=== PATIENT | male | born 1995 | race Caucasian/White ===

== ENCOUNTER 2020-05-11 15:23 | Emergency (ER) | payer SELFPAY ==
[2020-05-11 15:36] VITALS: BP 188/102; PULSE 83; RESP 16; TEMP 36.6; O2SAT 98
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
[2020-05-11] MEDS: Lidocaine/Epinephri/Tetracaine Topical Gel 3 ML (15:52)
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
--- NOTE | 2020-05-11 17:43 | NUR.NOTE ---
Nursing Note: Referral given to Care Management to establish care/PCP within 2-3 weeks. Jacinda Platt
== END 2020-05-11 18:00 | disposition home or self-care (01) ==
PROVIDERS: Emergency Provider Student in an Organized Health Care Education/Training Program
DX: S62.663A Nondisplaced fracture of distal phalanx of left middle finger, initial encounter for closed fracture (principal); S61.313A Laceration without foreign body of left middle finger with damage to nail, initial encounter; V48.5XXA Car driver injured in noncollision transport accident in traffic accident, initial encounter
CPT/HCPCS: 12001; 99281; 73130; 73140

== ENCOUNTER 2021-01-24 05:37 | Emergency (ER) | payer MEDICAID, SELFPAY ==
[2021-01-24] VITALS (11 sets, daily range): BP systolic 141–172; BP diastolic 67–88; PULSE 60–95; RESP 16–18; TEMP 36.3–36.8; O2SAT 97–99
--- NOTE | 2021-01-24 05:45 | DI.CT_ITS ---
Exam(s) CT BRAIN CTA EXAM: CT BRAIN CTA CLINICAL HISTORY: confusion, altered. TECHNIQUE: Imaging Protocol: Both noninfused and contrast infused CT scans of the brain were perform ed. IV Contrast Dose =75 cc Axial computed tomography images with coronal and sagittal reformatted images were created and review ed COMPARISON: No exams were available for comparison FINDINGS: There are no skull fractures nor fluid in the visualized paranasal sinuses. There is no evidence of intracranial hemorrhage, intra or extra-axial.Enlarged retro cerebellar poste rior fossa CSF space is noted which show some is either prominent cisterna magna or retro cerebellar arachnoid cyst. No other focal findings. No shift. There are no ring enhancing lesions in the brain and there is no abnormal meningeal enhancement, foca l or diffuse. CTA: ANTERIOR CIRCULATION: Both internal carotid arteries are patent in the skull base-carotid canals as w ell as within the cavernous sinuses. The supraclinoid aspects of the internal carotid arteries are p atent. Both A1 segments are patent as are the anterior cerebral arteries. There is no evidence of a neurysm at the level of the anterior communicating artery. Middle cerebral arteries are patent. POSTERIOR CIRCULATION: Basilar artery is formed by both vertebral arteries at the skull base and asce nds in the midline. Distally basilar artery gives off superior cerebellar arteries and above this le angelica terminates as patent bilateral posterior cerebral arteries. There is no evidence of aneurysm of the tip of the basilar artery nor elsewhere in the [id number]. IMPRESSION: No acute intracranial findings. No vascular occlusion. No aneurysms. No significant enhancing intracranial findings. Large retro cerebellar CSF space, probably prominent retro cerebellar arachnoid cyst. Study 1st read by [facility] RADIATION DOSE DELIVERED: 2,234.9mGy.cm Total DLP DATA REPOSITORY: All CT scans at this facility are submitted to the National Radiology Data Registry (NRDR) Dose Index Registry (DIR) with the [employer] (A[employer]). RADIATION OPTIMIZATION: All CT scans at this facility use at least one of these dose optimization te chniques: automated exposure control; mA and/or kV adjustment per patient size (includes targeted exa ms where dose is matched to clinical indication); or iterative reconstruction.
--- NOTE | 2021-01-24 05:58 | W.ED.GENAD ---
Discharge Plan Disposition Patient Disposition: HOME Condition: Improving Discharge Details Clinical Impression: Confusion state Primary Care Provider: None,None ED Provider: Mandi Bermudez Home Meds and New Rx's Prescriptions: No Action No Known Home Meds RF: 0 Discharge Instructions Instructions: Altered Mental Status (ED) Additional Instructions: Your imaging today is reassuring and does not note evidence of an acute brain abnormality at this time. Drink plenty of fluids and get plenty of rest. Follow-up with your scheduled appointment with neurologist Dr. Tyler in the office tomorrow at 1:45 PM for further evaluation. You will receive a call from care management regarding a follow-up appointment with the primary care doctor to establish care and for recheck of your carbon dioxide level in your blood and for referral for outpatient sleep study to rule out obstructive sleep apnea. Return immediately to the emergency department if you develop any worsening or new concerning symptoms. Stand Alone Forms: Work Release Referrals: Lisa Tyler MD [ [facility] STAFF PHYSICIAN] - Discharge Data Discharge Date/Time-TO BE ENTERED AT DEPARTURE: 01/24/21 13:09 Discharge Physician: Mandi Bermudez Medical Decision Making <Rogers Mallory DO - Last Filed: 01/25/21 00:10> This is a 25-year-old male with no significant past medical history who presents today for difficulty thinking and alteration of his baseline mental processing. Patient states that yesterday he had difficulty remembering if things were a dream or real life. He states he was treated late went and did test that he had already completed not recalling that he had done them in her life. He felt like his brain was in a fog. He denies any headache, trauma, new medications, IV or illicit drugs, or other symptoms. 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 He denies any natural gas use. She does admit that his sibling has been at home and she has felt nauseous today. Patient [place] This was [place]. One family member had diarrhea, but was negative on Covid testing. No other symptoms at that time. Patient denies any history or family history of MS, brain tumors, or bleeds. Patient denies any visual changes, neck pain or neck stiffness, chest pain, shortness of breath. He does admit to occasional intermittent cough. He denies any tobacco use. He works at [employer], but denies any significant chemical contact. He denies any dizziness or imbalance. No other complaints at this time. No other modifying factors. Also the patient does note that it is very very distant past he had an enlarged thyroid, but had no further work-up for this. Physical exam is relatively unremarkable, no focal neurologic deficits are present. Fine motor skills are notably intact. No meningeal signs. Patient does not appear in acute distress at this time. No headache. Symptoms appear inconsistent with meningitis. Differential is broad but does include carbon monoxide poisoning, acute or subacute intracranial etiology, including potential brain tumor, or some other metabolic cause of his very mild subjective encephalopathy. We will evaluate for life-threatening etiologies, monitor closely and reassess. 7:16 AM Laboratory work-up demonstrates an unremarkable white count, electrolytes are all stable and normal. Ammonia level, thyroid function are all normal. Unexpectedly the patient's PCO2 level is elevated at 65, however this is in the setting of a low/low normal pH. Uncertain as to what the etiology of this is. I did discuss this with the patient, although he does not have the body habitus of sleep apnea, he does state that he occasionally snores but otherwise has not had significant difficulty. We will get a repeat ABG. CT/CTA per virtual radiology is not yet complete however radiology did call and noted that there is nodular/heterogenous component to his cerebral vasculature potentially secondary to a nonspecific vasculitis, and there is also a proximal left sylvian fissure branch which demonstrates an abrupt occlusion in the anterior sylvian fissure. Patient does not show any focal neurologic deficits at this time, and certainly does not show any significant peripheral deficits suggestive of a large stroke at all clinically. The patient stroke scale is negative, NIH stroke score is 0. No indication for TPA. Patient does need further evaluation. We will order MRI, patient will be signed out to my colleague Dr. Mandi Bermudez for further assessment and follow-up on imaging. Patient will likely need further neurology consultation pending inpatient or outpatient basis. <Mandi Bermudez DO - Last Filed: 01/25/21 08:27> 0800 -- please see Dr. Mallory's note for initial presentation, exam and plan. Case endorsed to follow-up on MRI/MRA brain and neck. Patient assessed by me at bedside --he denies any acute complaints. He states majority of the symptoms were yesterday in which he was confused with tasks and whether he had completed them or not and a feeling of d?j? vu. He states the symptoms were lessened today but still present. He has no focal deficits on exam. No meningeal signs. Appears comfortable and nontoxic. 1045 -- MRA Brain and neck negative for acute findings. MRI Brain w/o contrast notes: IMPRESSION: 1. On the FLAIR sequence 1 image reveals very subtle increased signal in a left frontal lobe gyrus, possibly significant. There is no evidence of hemorrhage at this level. There is also no restricted diffusion on DWI. Recommend follow-up contrast infused MRI 2. Retro cerebellar CSF intensity extra-axial space. 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 It measures 10 cm wide by averaged 1.[address] Padron is recommending MRI brain with contrast for further differentiation of noncontrast MRI brain findings. 1230 --no acute findings noted on MRI brain with contrast. Case discussed with Dr. Tyler - the MRI brain without contrast findings can sometimes be seen postictal. She is recommending follow-up with her this week for reevaluation and for consideration for EEG and repeat MRI brain without contrast. No recommendation for seizure medication at this time. Pt was given his radiology discs and reports and all findings discussed including arachnoid cyst which per discussion with Dr. Tyler is likely incidental. Just prior to discharge, Dr. Tyler's office called to state they have scheduled him for a follow-up appointment tomorrow at 1:45 PM. Patient also placed on care management list to help arrange for follow-up appointment with the primary care doctor to establish care, for reevaluation and for recheck of his CO2 level and for consideration for outpatient sleep study. Pt felt comfortable with plan and appeared comfortable and in no acute distress. Usual and customary return precautions given prior to discharge. Medical Records Medical records reviewed: Yes I reviewed the patient's medical records. Imaging Data Radiologic Study: Radiologist's impression: MRA BRAIN WO CLINICAL HISTORY: confusion, vascular abnormalities on ct TECHNIQUE: Performed with [id number] sequence. COMPARISON: MR MR ANGIO BRAIN WO from 01/24/2021 FINDINGS: ANTERIOR CIRCULATION: Both internal carotid arteries are demonstrated to be patent in the skull base carotid canals and cavernous sinuses. The supraclinoid aspects of the internal carotid arteries are patent. Both a 1 segments are patent as are the anterior cerebral arteries and there is no evidence of aneurysm at the level of the anterior communicating artery. Middle cerebral arteries appear patent out to the sylvian fissure branches POSTERIOR CIRCULATION: Basilar artery is formed at the skull base by both vertebral arteries and the basilar artery ascends in the midline with normal luminal diameter. Distally gives off superior cerebellar arteries and above this level terminates as patent bilateral posterior cerebral arteries. There is no evidence of aneurysm tip of the basilar artery. IMPRESSION: No evidence of significant arterial stenosis nor vascular occlusion in the intracranial compartment. MRI BRAIN WO CLINICAL HISTORY: confusion, vascular abnormalities on ct TECHNIQUE: Multiplanar multisequence MRI of the brain was performed. Both noninfused and contrast infused sequences were performed. IV Contrast injected was cc Dotarem. COMPARISON: MR MR BRAIN WO from 01/24/2021 MR MR BRAIN WO from 01/24/2021 FINDINGS: CEREBRAL PARENCHYMA: No evidence of intracranial hemorrhage, mass effect nor shift of midline structure. No extraaxial fluid collections. Ventricles are not enlarged nor shifted. There is no significant focal signal abnormality in the cerebellar hemispheres nor within the maricel, midbrain, and thalami. There is no abnormal signal abnormality in the periventricular white matter. On the FLAIR sequence there is subtle increased gyral signal in the left frontal lobe. This is subtle. No evidence of hemorrhage at this level. Also no abnormal signal on diffusion imaging to suggest restricted diffusion at this level. There enlarged csf space in the posterior fossa which extends behind both cerebellar hemispheres and is most probably either widen cisterna magna or retro cerebellar arachnoid cyst. This measures approximately 10 cm wide by 2 cm AP. PITUITARY GLAND: No mass nor parasellar abnormality. No obvious abnormality in the cavernous sinuses. FLOW VOIDS: The expected flow void are noted. No evidence of obvious aneurysm nor obvious vascular malformation. PARANASAL SINUSES: There post inflammatory retention cysts in both maxillary sinuses. No fluid levels. Also mucosal thickening noted in the left maxillary sinus and right frontal sinus. No associated fluid level. Sphenoid sinuses are clear. ORBITS: No obvious abnormal findings. IMPRESSION: 1. On the FLAIR sequence 1 image reveals very subtle increased signal in a left frontal lobe gyrus, possibly significant. There is no evidence of hemorrhage at this level. There is also no restricted diffusion on DWI. Recommend follow-up contrast infused MRI 2. Retro cerebellar CSF intensity extra-axial space. 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 It measures 10 cm wide by averaged 1.8 cm AP. MRA NECK WITHOUT IV CONTRAST CLINICAL HISTORY: confusion, vascular abnormalities on ct. TECHNIQUE: Multiplanar multisequence MRA of the brain was performed. COMPARISON: None. FINDINGS: Anterior circulation: Both common carotid arteries ascend with normal luminal diameters. There is no significant stenosis at the carotid bifurcations and proximal internal carotid arteries and both internal carotid arteries are patent in the neck and skull base. POSTERIOR CIRCULATION: both vertebral arteries originated conventional fashion off of the subclavian arteries. left vertebral artery is dominant. both vertebral arteries are patent in the foramen transversarium and both vertebral arteries contribute to the formation of of the basilar artery at the skull base. IMPRESSION: PATENT CAROTID ARTERIES IN THE NECK. NO SIGNIFICANT STENOSIS. PATENT VERTEBRAL ARTERIES IN THE NECK. NO STENOSIS NOR DISSECTION. Lab Data Lab results reviewed: Yes I reviewed the patient's lab results. HPI <Rogers Mlalory, - Last Filed: 01/25/21 00:10> General Date/Time Provider Initiated Documentation: 01/24/21 05:38. HPI Narrative: This is a 25-year-old male with no significant past medical history who presents today for difficulty thinking and alteration of his baseline mental processing. Patient states that yesterday he had difficulty remembering if things were a dream or real life. He states he was treated late went and did test that he had already completed not recalling that he had done them in her life. He felt like his brain was in a fog. He denies any headache, trauma, new medications, IV or illicit drugs, or other symptoms. 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 He denies any natural gas use. She does admit that his sibling has been at home and she has felt nauseous today. Patient did [place]. This was [place]. One family member had diarrhea, but was negative on Covid testing. No other symptoms at that time. Patient denies any history or family history of MS, brain tumors, or bleeds. Patient denies any visual changes, neck pain or neck stiffness, chest pain, shortness of breath. He does admit to occasional intermittent cough. He denies any tobacco use. He works at [employer], but denies any significant chemical contact. He denies any dizziness or imbalance. No other complaints at this time. No other modifying factors. Also the patient does note that it is very very distant past he had an enlarged thyroid, but had no further work-up for this. Related Data Home Medications Medication Instructions Recorded Confirmed Unknown [No Known Home Meds] 05/17/20 01/24/21 Allergies Allergy/AdvReac Type Severity Reaction Status Date / Time banana Allergy throat Unverified 01/24/21 05:55 swelling honey Allergy Anaphylaxis Unverified 01/24/21 05:55 kiwi Allergy throat Unverified 01/24/21 05:55 swelling melon Allergy throat Unverified 01/24/21 05:55 swelling pineapple Allergy throat Unverified 01/24/21 05:55 swelling strawberry Allergy throat Unverified 01/24/21 05:55 swelling General Stated Complaint: GenMedical WALT: 2 Review of Systems <Rogers Mallory DO - Last Filed: 01/25/21 00:10> All systems reviewed & are unremarkable except as noted in HPI and below PFSH <Rogers Mallory DO - Last Filed: 01/25/21 00:10> Active Problem List (Updated 01/24/21 @ 12:46 by Mandi Bermudez DO) Confusion state (Acute) Fracture of phalanx of left middle finger (Acute) Injury of nail bed of finger (Acute) Abrasion (Acute) Medical History (Updated 01/24/21 @ 12:46 by Mandi Bermudez DO) No significant past medical history Surgical History (Updated 01/24/21 @ 12:46 by Mandi Bermudez DO) History of hernia repair S/P skin cancer resection foot Social History Smoking/Tobacco Use Status: Never Smoking risk assessment performed?: Yes Alcohol Intake: never Drug use: Never Substance use type: does not use Do you feel safe at home: Yes Do you feel safe in your relationship?: Yes Exam <Rogers Mallory DO - Last Filed: 01/25/21 00:10> Narrative Exam Narrative: 1.Const: Well-nourished, Well-developed, appearing stated age 2.Eyes: PERRL, no conjunctival injection, and symmetrical lids. 3.ENT: Atraumatic external nose and ears. Moist MM. Neck: Symmetric, trachea midline, No thyromegaly. Patient demonstrates good movement of cervical neck. There is no nuchal rigidity, no nuchal tenderness. Patient is able to flex the neck without any difficulty or significant pain. Negative Kernig's and Brudzinski sign. 4.CVS: +S1/S2, No murmurs or gallops. Peripheral pulses 2+ and equal in all extremities. Brisk capillary refill in all extremities. 5.RESP: Unlabored respiratory effort. Clear to auscultation bilaterally. No wheezes rales or rhonchi 6.GI: Soft, Nontender/Nondistended, No hepatosplenomegaly. No guarding or rebound. 7.MSK: Normocephalic/Atraumatic, Extremities w/o deformity or ttp No cyanosis or clubbing, Normal movement of all extremities 8.Skin: Warm, Dry. No rashes or lesions. 9.Neuro: rim roller setter II-XII grossly intact. Sensation grossly intact, no focal neurologic deficits. All 6 cardinal planes of vision are fully intact. No evidence of rotatory or vertical nystagmus. The patient demonstrated a normal [id number], good dexterity. There was no evidence of dysdiadochokinesia. Patient was able to ambulate without difficulty. There was no wide-based gait. Romberg testing was normal. Zslx-oy-coug testing was normal. Sensation was intact bilaterally as well as muscle strength bilaterally for all extremities. Patient was able to verbalize butter cup with no slurring, or miss pronunciation. 10.Psych: (AAO) x3. Appropriate mood and affect Course <Rogers Mallory DO - Last Filed: 01/25/21 00:10> Vital Signs Vital signs: Vital Signs Temperature 36.5 C 01/24/21 05:43 Pulse 95 H 01/24/21 05:43 Respiratory Rate 18 01/24/21 05:43 Blood Pressure 172/84 H 01/24/21 05:43 Pulse Oximetry 97 01/24/21 05:43 Temperature 36.5 C 01/24/21 05:43 Temperature Source Skin 01/24/21 05:43 Pulse 95 H 01/24/21 05:43 Respiratory Rate 18 01/24/21 05:43 Respiratory Effort Non-Labored 01/24/21 05:56 Blood Pressure 172/84 H 01/24/21 05:43 Blood Pressure Position Sitting 01/24/21 05:43 Pulse Oximetry 97 01/24/21 05:43 Oxygen Delivery Method Room Air 01/24/21 05:43 Oxygen Flow Rate 0 01/24/21 05:43 Pain Level 1 01/24/21 05:43 Sign Out <Rogers Mallory DO - Last Filed: 01/25/21 00:10> Sign Out Data: Sign Out Comment: Confusion, pending MRI results and follow-up reassessment. Last updated by Rogers Mallory DO at 01/24/21 07:33
[2021-01-24] MEDS: Omnipaque 350 MG/ML 100 ML BTL IJ (06:15)
[2021-01-24] MEDS: Normal Saline 500 ML IV (06:15)
[2021-01-24] MEDS: Normal Saline Flush 10 ML SYR IVP (06:15)
[2021-01-24 06:18] LABS: BE (Venous) 6 mmol/L (-2-3); HCO3 (Venous) 33 mmol/L (23-28); O2 Sat (Venous) 46 %; TCO2 (Venous) 29 mmol/L (24-29); pH (Venous) 7.31 (7.31-7.41); pO2 (Venous) 27 mmHg
[2021-01-24 06:19] LABS: Abs Immature Grans 0.02 10^3/uL (0.0-0.06); Absolute Basophil Count 0.07 10^3/uL (0.0-0.2); Absolute Eosinophil Count 0.42 10^3/uL (0.0-0.7); Absolute Lymphocyte Count 2.32 10^3/uL (1.2-3.4); Absolute Monocyte Count 0.58 10^3/uL (0.1-0.8); Eosinophils % 6.2; HCT 49.1 % (40.0-50.0); HGB 16.2 g/dL (13.5-17.5); Immature Grans % 0.3; Lymphocytes % 34.1; MCH 28.5 pg (27.0-33.0); MCV 86.4 fL (80-95); MPV 9.7 fL (8.0-11.0); Monocytes % 8.5; Neutrophils % 49.9; Nucleated RBC 0 %; Platelet Count 293 10^3/uL (130-400); RBC 5.68 10^6/uL (4.36-5.78); RDW 12.2 % (11.8-14.1); RDW-SD 38.5 fL; WBC 6.81 10^3/uL (4.4-10.8)
[2021-01-24 06:22] LABS: Carboxyhemoglobin 1.7 %
[2021-01-24 06:24] LABS: pCO2 (Venous) 65 mmHg (41-51)
--- NOTE | 2021-01-24 06:27 | NUR.NOTE ---
Nursing Note: care management is to set him up with pcp and the referral is in the care management mailbox
[2021-01-24 06:28] LABS: Ammonia 19 umol/L (11-32)
[2021-01-24 06:48] LABS: ALT 23 U/L (16-63); AST 17 U/L (15-37); Albumin 4.3 g/dL (3.4-5.0); Alkaline Phosphatase 53 U/L (46-116); Anion Gap 5.7 mmol/L (3-11); BUN 13 mg/dL (7-18); Bilirubin, Total 0.5 mg/dL (0.2-1.0); CO2 33.3 mmol/L (21.0-32.0); CREATININE 0.9 mg/dL (0.70-1.30); Calcium 8.8 mg/dL (8.5-10.1); Chloride 104 mmol/L (98-107); Glucose 81 mg/dL (74-106); Potassium 3.7 mmol/L (3.5-5.1); Sodium 143 mmol/L (136-145); TSH (W/Ref FT4) 3.46 uIU/mL (0.36-3.74); Total Protein 8.1 g/dL (6.4-8.2)
[2021-01-24 06:49] LABS: ETHANOL BLOOD < 3.0 mg/dL (<10)
--- NOTE | 2021-01-24 07:09 | DI.VRAD_ITS ---
Addendum created by Ger Caruso MD on 01/24/2021 7:50:13 AM EST: Subsequently reformatted MIP images are requested and reviewed. Although minimal irregularity in the contour of the enhanced lumen is noted common a definite diagnosis of FMD the cannot be made Addendum created by Ger Caruso MD on 01/24/2021 7:21:54 AM EST: THIS REPORT CONTAINS FINDINGS THAT MAY BE CRITICAL TO PATIENT CARE. The findings were verbally communicated via telephone conference with YONG MERA at 7:21 AM EST on 01/24/2021. The findings were acknowledged and understood. Initial report created on 01/24/2021 7:09:28 AM EST: PROCEDURE INFORMATION: Exam: CT Angiography Head With Contrast, Arteriography Exam date and time: 01/24/2021 5:58 AM Age: 25 years old Clinical indication: Memory loss; Type not specified; Patient HX: Confusion, altered, difficulty finding words, patient states time feels like going fast and memory deficits, doesn't feel right TECHNIQUE: Imaging protocol: Computed tomography angiography of the head with contrast. Exam focused on the arteries. 3D rendering (Not supervised by radiologist): MIP and/or 3D reconstructed images were created by the technologist. Contrast material: [id number]; Contrast volume: 100 ml; Contrast route: INTRAVENOUS (IV); COMPARISON: No relevant prior studies available. FINDINGS: Slightly heterogeneous appearance of the cerebral vasculature which demonstrates a slightly nodular appearance. In a patient of this age this would be unlikely to reflect atherosclerosis and may reflect a nonspecific vasculitis such as FMD. Proximal left sylvian fissure branch demonstrates what appears to be abrupt occlusion in the anterior sylvian fissure. Cerebral ventricles: No ventriculomegaly. Bones/joints: Unremarkable. No acute fracture. Soft tissues: Unremarkable. IMPRESSION: 1. Slightly heterogeneous appearance of the cerebral vasculature which demonstrates a slightly nodular appearance. In a patient of this age this would be unlikely to reflect atherosclerosis and may reflect a nonspecific vasculitis such as FMD. 2. Proximal left sylvian fissure branch demonstrates what appears to be abrupt occlusion in the anterior sylvian fissure. Dictated and Authenticated by: Ger Caruso MD. Ordering:KAMLESH Mccloud MD
[2021-01-24 07:21] LABS: BE (Venous) 4 mmol/L (-2-3); HCO3 (Venous) 30 mmol/L (23-28); O2 Sat (Venous) 60 %; TCO2 (Venous) 27 mmol/L (24-29); pCO2 (Venous) 57 mmHg (41-51); pH (Venous) 7.33 (7.31-7.41); pO2 (Venous) 33 mmHg
[2021-01-24 07:30] LABS: *AMPHETAMINES SCREEN URINE Negative (Negative); *BARBITURATES SCREEN URINE Negative (Negative); *BENZODIAZEPINES SCREEN URINE Negative (Negative); Cannabinoids THC Negative (Negative); Cocaine Screen,Urine Negative (Negative); METHADONE URINE SCREEN Negative (Negative); OPIATES URINE SCREEN Negative (Negative)
[2021-01-24 07:40] LABS: Tricyclic Antidepressants Negative (Negative)
--- NOTE | 2021-01-24 07:45 | DI.MRI_ITS ---
Exam(s) MR BRAIN WO EXAM: MRA BRAIN WO CLINICAL HISTORY: confusion, vascular abnormalities on ct TECHNIQUE: Performed with [id number] sequence. COMPARISON: MR MR ANGIO BRAIN WO from 01/24/2021 FINDINGS: ANTERIOR CIRCULATION: Both internal carotid arteries are demonstrated to be patent in the skull base carotid canals and cav ernous sinuses. The supraclinoid aspects of the internal carotid arteries are patent. Both a 1 segm ents are patent as are the anterior cerebral arteries and there is no evidence of aneurysm at the lev el of the anterior communicating artery. Middle cerebral arteries appear patent out to the sylvian fissure branches POSTERIOR CIRCULATION: Basilar artery is formed at the skull base by both vertebral arteries and the basilar artery ascends in the midline with normal luminal diameter. Distally gives off superior cerebellar arteries and abo ve this level terminates as patent bilateral posterior cerebral arteries. There is no evidence of an eurysm tip of the basilar artery. IMPRESSION: No evidence of significant arterial stenosis nor vascular occlusion in the intracranial compartment. . DATA REPOSITORY:
--- NOTE | 2021-01-24 07:45 | DI.MRI_ITS ---
Exam(s) MR ANGIO BRAIN WO EXAM: MRI BRAIN WO CLINICAL HISTORY: confusion, vascular abnormalities on ct TECHNIQUE: Multiplanar multisequence MRI of the brain was performed. Both noninfused and contrast i nfused sequences were performed. IV Contrast injected was cc Dotarem. COMPARISON: MR MR BRAIN WO from 01/24/2021 MR MR BRAIN WO from 01/24/2021 FINDINGS: CEREBRAL PARENCHYMA: No evidence of intracranial hemorrhage, mass effect nor shift of midline structu re. No extraaxial fluid collections. Ventricles are not enlarged nor shifted. There is no significant focal signal abnormality in the cerebellar hemispheres nor within the maricel, m idbrain, and thalami. There is no abnormal signal abnormality in the periventricular white matter. On the FLAIR sequence there is subtle increased gyral signal in the left frontal lobe. This is subtl e. No evidence of hemorrhage at this level. Also no abnormal signal on diffusion imaging to suggest restricted diffusion at this level. There enlarged csf space in the posterior fossa which extends behind both cerebellar hemispheres and is most probably either widen cisterna magna or retro cerebellar arachnoid cyst. This measures appro ximately 10 cm wide by 2 cm AP. PITUITARY GLAND: No mass nor parasellar abnormality. No obvious abnormality in the cavernous sinuses. FLOW VOIDS: The expected flow void are noted. No evidence of obvious aneurysm nor obvious vascular ma lformation. PARANASAL SINUSES: There post inflammatory retention cysts in both maxillary sinuses. No fluid level s. Also mucosal thickening noted in the left maxillary sinus and right frontal sinus. No associated fluid level. Sphenoid sinuses are clear. ORBITS: No obvious abnormal findings. IMPRESSION: 1. On the FLAIR sequence 1 image reveals very subtle increased signal in a left frontal lobe gyrus, p ossibly significant. There is no evidence of hemorrhage at this level. There is also no restricted diffusion on DWI. Recommend follow-up contrast infused MRI 2. Retro cerebellar CSF intensity extra-axial space. 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 It measures 10 cm wide by averaged 1.8 cm AP. DATA REPOSITORY:
--- NOTE | 2021-01-24 07:45 | DI.MRI_ITS ---
Exam(s) MR ANGIO NECK WO EXAM: MRA NECK WITHOUT IV CONTRAST CLINICAL HISTORY: confusion, vascular abnormalities on ct. TECHNIQUE: Multiplanar multisequence MRA of the brain was performed. COMPARISON: None. FINDINGS: Anterior circulation: Both common carotid arteries ascend with normal luminal diameters. There is no significant stenosis at the carotid bifurcations and proximal internal carotid arteries and both internal carotid arteries are patent in the neck and skull base. POSTERIOR CIRCULATION: both vertebral arteries originated conventional fashion off of the subclavian arteries. left vertebral artery is dominant. both vertebral arteries are patent in the foramen foreman sversarium and both vertebral arteries contribute to the formation of of the basilar artery at the sk ul base. IMPRESSION: PATENT CAROTID ARTERIES IN THE NECK. NO SIGNIFICANT STENOSIS. PATENT VERTEBRAL ARTERIES IN THE NECK. NO STENOSIS NOR DISSECTION. DATA REPOSITORY:
--- NOTE | 2021-01-24 11:00 | DI.MRI_ITS ---
Exam(s) MR BRAIN W EXAM: MR BRAIN W CLINICAL HISTORY: increased signal L frontal gyrus, r/o cva/mass TECHNIQUE: Multiplanar multisequence MRI of the brain was performed. Both noninfused and contrast i nfused sequences were performed. IV Contrast injected was 18 cc Dotarem. COMPARISON: MR MR BRAIN WO from 01/24/2021 MR MR ANGIO BRAIN WO from 01/24/2021 MR MR ANGIO BRAIN WO from 01/24/2021 MR MR BRAIN WO from 01/24/2021 FINDINGS: CEREBRAL PARENCHYMA: No evidence of intracranial hemorrhage, mass effect nor shift of midline structu re. No extraaxial fluid collections. Ventricles are not enlarged nor shifted. There is no significant focal signal abnormality in the cerebellar hemispheres nor within the maricel, m idbrain, and thalami. There is no abnormal signal abnormality in the periventricular white matter. There are no ring enhancing lesions in the brain and there is no abnormal meningeal enhancement. There is no enhancement in the gyrus described left frontal lobe on the recent noninfused study FLAIR sequence. Previously described enlarged CSF space in the posterior fossa retro cerebellar region is again noted , nonenhancing. 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 PITUITARY GLAND: No mass nor parasellar abnormality. No obvious abnormality in the cavernous sinuses. FLOW VOIDS: The expected flow void are noted. No evidence of obvious aneurysm nor obvious vascular ma lformation. No evidence of venous sinus thrombosis. None PARANASAL SINUSES: Mucosal thickening and post inflammatory retention cysts noted in the right maxill kyler sinus, this cyst measuring 1.9 x 1.5 cm. Smaller amount of mucosal thickening seen in left maxil naren sinus. Some mucosal enhancement is noted in the right frontal sinus but without fluid level the rein. ORBITS: No obvious abnormal findings. IMPRESSION: 1. No significant enhance intracranial findings on this MRI study. No ring enhancing lesions nor abn ormal meningeal enhancement. Also no abnormal enhancement at the level of the left frontal lobe gyru s described on the FLAIR sequence of the conventional MRI performed earlier today.. 2. No evidence of venous sinus thrombosis. 3,. Enlarged retro cerebellar CSF space again noted, 10 cm wide by 1.5 cm AP. 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 DATA REPOSITORY:
--- NOTE | 2021-01-25 10:50 | NUR.NOTE ---
referral sent to cm to get a pcp to establish care, recheck bmp and schedcule a outpatient sleep study
[2021-01-25 16:33] LABS: COVID-19 RT-PCR UVMMC Result Negative (Negative)
== END 2021-01-24 13:09 | disposition home or self-care (01) ==
PROVIDERS: Student in an Organized Health Care Education/Training Program; Emergency Provider Physician Assistant
DX: R41.0 Disorientation, unspecified (principal); R90.89 Other abnormal findings on diagnostic imaging of central nervous system; R06.89 Other abnormalities of breathing; Z20.822 Contact with and (suspected) exposure to COVID-19; Z03.818 Encounter for observation for suspected exposure to other biological agents ruled out
CPT/HCPCS: 36415; 70496; 70544; 70547; 70552; 80053; 80307; 82375; 82805; 96360; 96361; 99285; U0003; 70551; 80320; 82140; 84443; 85025; J3490

== ENCOUNTER 2021-02-04 00:49 | Outpatient (CLI) | payer MEDICAID, SELFPAY ==
--- NOTE | 2021-02-10 10:26 | PDOC.EEG ---
Neurology EEG EEG: [facility] Department of Neurology LONG-TERM AMBULATORY EEG REPORT Date of Recordin02/04/21 at 15:37:45 to 02/05/21 at 16:19:08 Interpreting Physician: Dr. Lisa Tyler PCP/Referring Provider: Dr. Pollo Villalobos Reason for study: Mr. Alex is a 25 year-old with recent spells of amnesia, concerning for seizure. Current Medications: Home Medications Medication Instructions Recorded Confirmed Type Unknown [No Known Home Meds] 05/17/20 02/04/21 History METHODS: An 18-channel digitized electroencephalogram was recorded in the ambulatory setting with video. The 10/20 international system of electrode placement was used and bipolar and referential electrode montages were recorded. In addition to EEG the patient was monitored for EKG and by video. Activation procedures of photic stimulation and hyperventilation were performed if applicable. The duration of the recording was ~25 hours. DESCRIPTION OF EEG: Waking background activity: During maximal wakefulness an 11-Hz posterior background rhythm was present which was well-modulated, symmetrical, reactive to eye opening, and of moderate voltage. Faster frequencies were present in the bilateral anterior head regions. There was a normal anterior-posterior voltage gradient. Drowsy and sleeping background activity: During drowsiness, there was attenuation of the posterior dominant background rhythm and vertex waves. Normal stage II and III sleep was present with symmetrical sleep spindles, K-complexes, and vertex waves with slowing of the background rhythm to delta/theta frequencies. REM sleep manifested by rapid lateral eye movements and faster background rhythms was recorded. Arousal was unremarkable, though he was noted to have very frequent arousals in sleep. Interictal abnormalities: none. Ictal findings: No events recorded. Activating Procedures: Photic stimulation was performed which produced a symmetrical posterior driving response at various flash frequencies. Hyperventilation was performed with moderate effort and produced no physiological slowing of the background. EKG: EKG revealed normal sinus rhythm. INTERPRETATION: This long-term EEG is normal during the awake and sleep states as well as during the activation procedures. Frequent nocturnal arousals out of sleep noted. PRIOR EEG: none CLINICAL CORRELATION: No focal regions of cerebral dysfunction or epileptiform activity was present. Frequent nocturnal arousals concerning for an underlying sleep disorder. Epilepsy remains a clinical diagnosis and a normal EEG does not rule out epilepsy. Clinical correlation is advised. Lisa Tyler MD
== END 2021-02-04 00:50 | disposition home or self-care (01) ==
LOC: RT 00:49
PROVIDERS: PCP Family Medicine; Visit Provider Psychiatry & Neurology Neurology
DX: G45.4 Transient global amnesia (principal)
CPT/HCPCS: 95714

== ENCOUNTER 2021-02-04 16:33 | Emergency (ER) | payer MEDICAID, SELFPAY ==
[2021-02-04 16:48] VITALS: BP 145/75; PULSE 67; TEMP 36.7; O2SAT 96
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
[2021-02-04 17:37] VITALS: BP 130/50; PULSE 65; RESP 22; TEMP 37.1; O2SAT 91
[2021-02-04] MEDS: Bacitracin 1 PACKET TP (17:37)
== END 2021-02-04 17:18 | disposition home or self-care (01) ==
PROVIDERS: Emergency Provider Registered Nurse Emergency; PCP Family Medicine
DX: T23.272A Burn of second degree of left wrist, initial encounter (principal); X15.0XXA Contact with hot stove (kitchen), initial encounter
CPT/HCPCS: 99282

== ENCOUNTER 2021-03-31 01:42 | Outpatient (CLI) | payer MEDICAID, SELFPAY ==
--- NOTE | 2021-03-31 06:30 | DI.MRI_ITS ---
Exam(s) MR BRAIN WO EXAM: MR BRAIN WO CLINICAL HISTORY: f/u abnormal left frontal lesion,r90.89 TECHNIQUE: Multiplanar multisequence MRI of the brain was performed. COMPARISON: MR MR BRAIN W from 01/24/2021 MR MR BRAIN WO from 01/24/2021 FINDINGS: The ventricular system is normal in appearance. Note is again made of prominent fluid space, retro c erebellar, large cisterna magna versus arachnoid cyst. No change from prior study of December 2020. Incidental note is made of apparent right maxillary retention cyst. In comparison with the examination of January 24, a questionable area of increased signal was note d in a left frontal gyrus, this is unchanged or less prominent on the current examination, the DIR sp osmar images show no abnormality at this site.. The orbital and temporal bone structures appear intact as does the pituitary. Diffusion weighted imaging shows no evidence of infarction. Susceptibility weighted imaging shows no evidence of intracranial hemorrhage. There is normal flow void in the [place] vasculature. IMPRESSION: No evidence of acute intracranial process. DATA REPOSITORY:
== END 2021-03-31 02:02 ==
PROVIDERS: PCP Family Medicine; Visit Provider Psychiatry & Neurology Neurology
DX: R90.89 Other abnormal findings on diagnostic imaging of central nervous system (principal); G93.89 Other specified disorders of brain
CPT/HCPCS: 70551

== ENCOUNTER 2021-05-09 17:23 | Outpatient (REF) | payer MEDICAID, SELFPAY | END 2021-05-09 17:24 | disposition home or self-care (01) | LOC: LBN 17:23 | PROVIDERS: PCP Family Medicine; Visit Provider Family Medicine | DX: R21 Rash and other nonspecific skin eruption (principal) | CPT/HCPCS: 87077; 87070; 87186; 87205 ==

== ENCOUNTER 2022-08-11 10:46 | Outpatient (CLI) | payer MEDICAID, SELFPAY ==
--- NOTE | 2022-08-11 10:45 | RT.EKG_ITS ---
APPROVED REPORT Exam: Resting ECG Reason for Exam: Sore throat Patient Location: O HR:68 bpm ECG Measurements Heart Rate 68 AXIS MA 171 P 47 QRSd 103 QRS 22 QT 391 T 39 QTc 416 Conclusion Sinus rhythm...normal P axis, V-rate 50- 99 ST elev, probable normal early repol pattern...ST elevation, age<55 Normal Electrocardiogram
== END 2022-08-11 10:47 | disposition home or self-care (01) ==
PROVIDERS: PCP Nurse Practitioner Family; Visit Provider Physician Assistant
DX: J02.9 Acute pharyngitis, unspecified (principal); R42 Dizziness and giddiness
CPT/HCPCS: 93010

== ENCOUNTER 2022-08-11 13:34 | Outpatient (REF) | payer MEDICAID, SELFPAY | END 2022-08-11 13:35 | disposition home or self-care (01) | LOC: LBN 13:34 | PROVIDERS: PCP Nurse Practitioner Family; Visit Provider Physician Assistant | DX: J02.9 Acute pharyngitis, unspecified (principal) | CPT/HCPCS: 87070 ==

== ENCOUNTER 2022-08-11 13:48 | Outpatient (CLI) | payer MEDICAID, SELFPAY ==
--- NOTE | 2022-08-11 11:00 | DI.US_ITS ---
Exam(s) US ABDOMEN EXAM: US ABDOMEN CLINICAL HISTORY: abdominal pain, epigastric, RUQ,? splenomegaly, fatigue,r10.9 TECHNIQUE: Ultrasound of complete upper abdomen performed using standard protocol. COMPARISON: No exams were available for comparison FINDINGS: There is no ascites evident. LIVER: There are no hepatic lesions evident nor obvious dilatation of intrahepatic ducts. GALLBLADDER/BILIARY: There are no gallstones. No gallbladder wall edema nor pericholecystic fluid. The common hepatic duct isnot dilated, measuring 2mm at the level of marissa hepatis. PANCREAS: There is no evidence of pancreatic mass nor dilatation of the pancreatic duct. SPLEEN: Spleen is enlarged, measuring 16 cm length. No significant intrasplenic lesions. No perispl enic fluid. KIDNEYS:Kidneys exhibit normal size with no evidence of solid mass, calculus, nor hydronephrosis. No cortical cysts evident. ABDOMINAL AORTA: There is no evidence of abdominal aortic aneurysm. IVC: Normal diameter where visualized. IMPRESSION: 1. Splenomegaly noted. No intrasplenic lesions. No perisplenic fluid 2. No other significant ultrasound findings in the upper abdomen. 3. There is no ascites. DATA REPOSITORY:
--- NOTE | 2022-08-11 13:30 | DI.CT_ITS ---
Exam(s) CT CHEST PE CTA EXAM: CT CHEST PE CTA CLINICAL HISTORY: chest pain, SOB elevated d Dimer,R07.9. TECHNIQUE: Imaging Protocol: CT angiography of the chest was performed using pulmonary embolus helen col. Multi planar reconstructions were performed. CONTRAST MATERIAL: Intravenous: Omnipaque 350 Contrast volume: 100 cc COMPARISON: CT CT BRAIN CTA from 01/24/2021 FINDINGS: CHEST: PULMONARY ARTERIES: There are no obvious intraluminal filling defects to suggest acute pulmonary embo li. LUNGS: No significant focal findings in the left lung.. No pleural effusion. In the opposite-right lung there is a pleural based density in the posterior basal segment right lowe r lobe which measures approximately 1.6 by 0.8 cm. Not associated with overlying rib destruction nor pleural effusion. Requires follow-up. There are no other focal right lung findings. No findings i n trachea and mainstem bronchi. MEDIASTINUM: There are calcified prominent subcarinal lymph nodes. Also small calcified lymph nodes in the right hilum.. No adenopathy in the anterior mediastinal fat. Visualized thyroid unremarkable . CARDIAC: Heart size is upper normal. There is no pericardial effusion.Caliber of the thoracic aorta is within normal limits. No dissection. There is no significant shift of the interventricular septum . PARTIALLY VISUALIZED UPPERMOST ABDOMEN: No adrenal masses. Splenomegaly noted. OSSEOUS: No significant osseous lesions.. IMPRESSION: 1. No evidence of acute pulmonary emboli. 2. Partially calcified pleural based density in the posterior basal segment right lower lobe as descr ibed above. No other focal lung findings but there does appear to be subcarinal adenopathy, partiall y calcified. Also few slightly prominent calcified right hilar lymph nodes. 3. Splenomegaly noted. Close follow-up recommended. Cannot exclude lymphoma. RADIATION DOSE DELIVERED: 537.5mGy.cm Total DLP DATA REPOSITORY: All CT scans at this facility are submitted to the National Radiology Data Registry (NRDR) Dose Index Registry (DIR) with the [employer] (ACR). RADIATION OPTIMIZATION: All CT scans at this facility use at least one of these dose optimization te chniques: automated exposure control; mA and/or kV adjustment per patient size (includes targeted exa ms where dose is matched to clinical indication); or iterative reconstruction.
[2022-08-11] MEDS: Omnipaque 350 MG/ML 100 ML BTL IJ (16:36)
[2022-08-11] MEDS: Normal Saline - Diluent 50 ML VIAL IJ (16:38)
[2022-08-11] MEDS: Normal Saline Flush 10 ML SYR IVP (16:39)
== END 2022-08-11 14:08 ==
PROVIDERS: PCP Nurse Practitioner Family; Visit Provider Physician Assistant
DX: R53.83 Other fatigue; R16.1 Splenomegaly, not elsewhere classified; R06.02 Shortness of breath
CPT/HCPCS: 71275; 76700; J3490

== ENCOUNTER 2022-08-11 14:18 | Outpatient (CLI) | payer MEDICAID, SELFPAY ==
[2022-08-11 11:58] LABS: Abs Immature Grans 0.02 10^3/uL (0.0-0.06); HCT 45.6 % (40.0-50.0); HGB 14.9 g/dL (13.5-17.5); MCH 28.2 pg (27.0-33.0); MCHC 32.7 % (32.0-36.0); MCV 86 fL (80-95); MPV 9.7 fL (8.0-11.0); Platelet Count 221 10^3/uL (130-400); RBC 5.29 10^6/uL (4.36-5.78); RDW 12.9 % (11.8-14.1); RDW-SD 40.3 fL; WBC 9.55 10^3/uL (4.4-10.8)
[2022-08-11 12:18] LABS: ALT 589 U/L (16-63); AST 244 U/L (15-37); Alkaline Phosphatase 76 U/L (46-116); Anion Gap 5.7 mmol/L (3-11); BUN 13 mg/dL (7-18); Bilirubin, Total 0.6 mg/dL (0.2-1.0); CO2 30.3 mmol/L (21.0-32.0); CREATININE 0.9 mg/dL (0.70-1.30); Chloride 103 mmol/L (98-107); Estimated GFR 119.31 (mL/min/1.73m2); Glucose 94 mg/dL (74-106); Lipase 23 U/L (16-77); Mono Screening POSITIVE (Negative); Potassium 4.3 mmol/L (3.5-5.1); Sodium 139 mmol/L (136-145); Total Protein 8.3 g/dL (6.4-8.2); Troponin I < 50 ng/L (<or=60)
[2022-08-11 12:22] LABS: Absolute Eosinophil Count 0.29 10^3/uL (0.0-0.7); Absolute Lymphocyte Count 5.73 10^3/uL (1.2-3.4); Absolute Monocyte Count 0.48 10^3/uL (0.1-0.8); Absolute Neutrophil Count 3.06 10^3/uL (1.2-6.7); Atypical Lymphocytes % 42; Diff Comment Manual Differential; RBC Morphology Normal
[2022-08-11 12:34] LABS: D-Dimer 632 ng/mlFEU (<500)
[2022-08-14 10:09] LABS: Lyme Ab w Rflx to Lyme Confirm Negative (Negative)
[2022-08-14 15:04] LABS: EBV DNA Detect/Quant, P 134 IU/mL (Undetected)
[2022-08-15 16:41] LABS: Anaplasma phagocytophilum Negative (Negative); B. miyamotoi PCR Negative (Negative); Babesia divergens/MO-1 Negative (Negative); Babesia duncani Negative (Negative); Babesia microti Negative (Negative); Ehrlichia chaffeensis Negative (Negative); Ehrlichia ewingii/canis Negative (Negative); Ehrlichia muris eauclairensis Negative (Negative)
== END 2022-08-11 14:19 | disposition home or self-care (01) ==
LOC: LBO 14:18
PROVIDERS: PCP Nurse Practitioner Family; Visit Provider Physician Assistant
DX: R53.83 Other fatigue; J02.9 Acute pharyngitis, unspecified; R07.89 Other chest pain; R91.8 Other nonspecific abnormal finding of lung field; R10.9 Unspecified abdominal pain; R16.1 Splenomegaly, not elsewhere classified
CPT/HCPCS: 36415; 80053; 83690; 87798; 87799; 84484; 85025; 85379; 86308; 86618

== ENCOUNTER 2023-03-27 10:50 | Outpatient (CLI) | payer MEDICAID, SELFPAY ==
[2023-03-27 16:49] LABS: Abs Immature Grans 0.05 10^3/uL (0.0-0.06); Absolute Basophil Count 0.07 10^3/uL (0.0-0.2); Absolute Eosinophil Count 0.57 10^3/uL (0.0-0.7); Absolute Lymphocyte Count 3.16 10^3/uL (1.2-3.4); Absolute Monocyte Count 0.67 10^3/uL (0.1-0.8); Absolute Neutrophil Count 4.61 10^3/uL (1.2-6.7); Basophils % 0.8; Eosinophils % 6.2; HCT 47.8 % (40.0-50.0); HGB 16.4 g/dL (13.5-17.5); Immature Grans % 0.5; Lymphocytes % 34.6; MCH 28.9 pg (27.0-33.0); MCHC 34.3 % (32.0-36.0); MCV 84 fL (80-95); MPV 9.5 fL (8.0-11.0); Monocytes % 7.3; Neutrophils % 50.6; Platelet Count 329 10^3/uL (130-400); RBC 5.67 10^6/uL (4.36-5.78); RDW 11.9 % (11.8-14.1); RDW-SD 36.1 fL; WBC 9.13 10^3/uL (4.4-10.8)
[2023-03-27 16:51] LABS: ESR 2 mm/hr (0-15)
[2023-03-27 17:00] LABS: LDH 220 U/L (85-227)
[2023-03-27 17:03] LABS: ALT 41 U/L (16-63); Albumin 4.2 g/dL (3.4-5.0); Alkaline Phosphatase 42 U/L (46-116); Anion Gap 10.7 mmol/L (3-11); BUN 14 mg/dL (7-18); Bilirubin, Total 0.3 mg/dL (0.2-1.0); CO2 29.3 mmol/L (21.0-32.0); CREATININE 0.9 mg/dL (0.70-1.30); Calcium 9.3 mg/dL (8.5-10.1); Chloride 104 mmol/L (98-107); Estimated GFR 118.57 (mL/min/1.73m2); Glucose 116 mg/dL (74-106); Potassium 3.8 mmol/L (3.5-5.1); Sodium 144 mmol/L (136-145)
[2023-03-27 17:17] LABS: Calculated LDL 87 mg/dL (<100); Cholesterol 206 mg/dL (<200); HDL Cholesterol 41 mg/dL (40-60); Triglyceride 394 mg/dL (<150)
[2023-03-27 17:42] LABS: AST 22 U/L (15-37)
[2023-03-29 10:05] LABS: IgA 186 mg/dL (85-499); IgG 1328 mg/dL (610-1616); IgM 90 mg/dL (35-242)
== END 2023-03-27 10:51 | disposition home or self-care (01) ==
LOC: LBO 03-28 10:51
PROVIDERS: PCP Nurse Practitioner Family; Visit Provider Internal Medicine Hematology & Oncology
DX: R59.0 Localized enlarged lymph nodes (principal); R79.89 Other specified abnormal findings of blood chemistry; Z13.220 Encounter for screening for lipoid disorders; Z00.00 Encounter for general adult medical examination without abnormal findings
CPT/HCPCS: 36415; 80053; 80061; 82784; 85027; 85652; 83615; 85025

== ENCOUNTER 2023-07-18 08:34 | Outpatient (CLI) | payer MEDICAID, SELFPAY ==
[2023-07-18 07:58] LABS: Abs Immature Grans 0.02 10^3/uL (0.0-0.06); Absolute Basophil Count 0.05 10^3/uL (0.0-0.2); Absolute Eosinophil Count 0.54 10^3/uL (0.0-0.7); Absolute Lymphocyte Count 2.37 10^3/uL (1.2-3.4); Absolute Monocyte Count 0.47 10^3/uL (0.1-0.8); Absolute Neutrophil Count 2.57 10^3/uL (1.2-6.7); Basophils % 0.8 %; HCT 46.8 % (40.0-50.0); HGB 15.6 g/dL (13.5-17.5); Immature Grans % 0.3 %; Lymphocytes % 39.4 %; MCH 28.4 pg (27.0-33.0); MCHC 33.3 % (32.0-36.0); MCV 85 fL (80-95); MPV 9.3 fL (8.0-11.0); Monocytes % 7.8 %; Neutrophils % 42.7 %; Platelet Count 257 10^3/uL (130-400); RBC 5.49 10^6/uL (4.36-5.78); RDW 11.9 % (11.8-14.1); RDW-SD 37.1 fL; WBC 6.02 10^3/uL (4.4-10.8)
[2023-07-18 08:03] LABS: ESR < 1 mm/hr (0-15)
[2023-07-18 08:32] LABS: ALT 34 U/L (16-63); AST 26 U/L (15-37); Alkaline Phosphatase 40 U/L (46-116); Anion Gap 2.6 mmol/L (3-11); BUN 14 mg/dL (7-18); Bilirubin, Total 0.6 mg/dL (0.2-1.0); CO2 30.4 mmol/L (21.0-32.0); Calcium 8.8 mg/dL (8.5-10.1); Chloride 105 mmol/L (98-107); Estimated GFR 104.48 (mL/min/1.73m2); Glucose 127 mg/dL (74-106); Potassium 4.2 mmol/L (3.5-5.1); Sodium 138 mmol/L (136-145); Total Protein 7.6 g/dL (6.4-8.2)
[2023-07-18 08:44] LABS: LDH 211 U/L (85-227)
== END 2023-07-18 08:35 | disposition home or self-care (01) ==
LOC: LBO 08:35
PROVIDERS: PCP Nurse Practitioner Family; Visit Provider Internal Medicine Hematology & Oncology
DX: Z00.00 Encounter for general adult medical examination without abnormal findings (principal); R59.0 Localized enlarged lymph nodes
CPT/HCPCS: 36415; 80053; 85027; 85652; 83615; 85025

== ENCOUNTER 2023-09-26 10:35 | Outpatient (REF) | payer MEDICAID, SELFPAY | END 2023-09-26 10:36 | disposition home or self-care (01) | LOC: LBN 10:35 | PROVIDERS: PCP Nurse Practitioner Family; Visit Provider Physician Assistant | DX: J02.9 Acute pharyngitis, unspecified (principal) | CPT/HCPCS: 87070 ==

== ENCOUNTER 2023-10-01 00:23 | Emergency (ER) | payer MEDICAID, SELFPAY ==
[2023-10-01] VITALS (19 sets, daily range): BP systolic 141–154; BP diastolic 71–99; PULSE 88–108; RESP 11–23; TEMP 37.1; O2SAT 92–97
--- NOTE | 2023-10-01 00:30 | RT.EKG_ITS ---
APPROVED REPORT Exam: Resting ECG Reason for Exam: upper body pain Patient Location: E HR:97 bpm ECG Measurements Heart Rate 97 AXIS AK 180 P 51 QRSd 93 QRS 16 QT 327 T 40 QTc 415 Conclusion Sinus rhythm...normal P axis, V-rate 60- 99 Probable left atrial enlargement...P >50mS, <-0.10mV V1 ST elev, probable normal early repol pattern...ST elevation, age<55 There are no significant changes compared to prior EKG performed on 08/11/2022 at 10:39.
--- NOTE | 2023-10-01 00:33 | ED.GENADUL_ITS ---
Discharge Plan Disposition Patient Disposition: Home Condition: Stable Discharge Details Clinical Impression: Nausea, vomiting and diarrhea, Chest pain Primary Care Provider: Evie Finch ED Provider: Cecilio Pleitez Meds and New Rx's Prescriptions: New Ondansetron Odt, 3 Tabs/Btl [Zofran Odt, 3 Tabs/Btl] 4 mg PO Q8H PRN (Reason: Nausea And Vomiting) Qty: 3 0RF Continued magnesium oxide 400 mg (241.3 mg magnesium) tablet 400 mg PO DAILY Discharge Instructions Instructions: Chest Pain, Adult ED, Nausea and Vomiting, Adult ED Additional Instructions: You were seen for chest pain that occurred in association with vomiting and is likely musculoskeletal in nature. Your exam, EKG, laboratory studies, CT scan are all reassuring. Rest and take it easy over the next day or 2. [place] diet is recommended. Ondansetron provided for recurrent nausea vomiting. May use acetaminophen or ibuprofen for your pain. Follow-up with primary care in the next few days if you are not improving. Return to ED for any fever, worsening chest pain, abdominal pain, shortness of breath, persistent vomiting, bloody diarrhea, other concerns. HPI General Mode of arrival: ambulatory . Date/Time Provider Initiated Documentation: 10/01/23 00:32 . Limitations to Documentation: no limitations . Information obtained by: patient . HPI Narrative: Patient presents to ED complaint of chest pain that occurred after he began vomiting this evening. Patient reports being fine during the day. Late this afternoon started to feel unwell, nausea, headache. This evening around 9 PM had his first episode of vomiting. Has had diarrhea. Has had a little bit of abdominal pain. Developed substernal chest pain after vomiting the first time. Vomited a second time and pain significantly worse. Thought the vomit a second time looked a little reddish-brown in nature but not grossly bloody. Chest pain worse with breathing or movement. Denies any back pain. Denies any shortness of breath. Reports feeling like something popped inside his chest while vomiting. Related Data Home Medications ?Medication ?Instructions ?Recorded ?Confirmed magnesium oxide 400 mg (241.3 mg 400 mg PO DAILY 03/29/21 10/01/23 magnesium) tablet Ondansetron ODT, 3 tabs/btl 4 mg PO Q8H PRN Nausea And 10/01/23 [Zofran ODT, 3 tabs/btl] Vomiting #3 ea Previous Rx's ?Medication ?Instructions ?Recorded Ondansetron ODT, 3 tabs/btl 4 mg PO Q8H PRN Nausea And 10/01/23 [Zofran ODT, 3 tabs/btl] Vomiting #3 ea Allergies Allergy/AdvReac Type Severity Reaction Status Date / Time banana Allergy throat Verified 10/01/23 00:32 swelling honey Allergy Anaphylaxis Verified 10/01/23 00:32 kiwi Allergy throat Verified 10/01/23 00:32 swelling melon Allergy throat Verified 10/01/23 00:32 swelling pineapple Allergy throat Verified 10/01/23 00:32 swelling strawberry Allergy throat Verified 10/01/23 00:32 swelling General Stated Complaint: Chest Pain WALT: 3 Review of Systems Narrative: Per HPI Exam Narrative Exam Narrative: Const: WDWN male in NAD. VS per triage. HEENT: NC/AT. Normal facial exam. Neck: Supple. Trachea midline. Lungs: Normal respiratory effort. Lungs are clear. Chest wall tenderness along the lower sternum. Cor: RRR without murmur. Good radial pulses. GI: Soft/ND/NT. Neuro: A+O x 3. Normal speech, mentation, gait. Cranial nerves II - XII grossly intact. No gross motor or sensory deficit. Ext: No C/C/E. Course Vital Signs Vital signs: Vital Signs Temperature 98.8 F 10/01/23 00:28 Pulse 108 H 10/01/23 00:28 Respiratory Rate 18 10/01/23 00:28 Blood Pressure 141/88 H 10/01/23 00:28 Pulse Oximetry 95 10/01/23 00:28 Temperature 98.8 F 10/01/23 00:28 Temperature Source Skin 10/01/23 00:28 Pulse 108 H 10/01/23 00:28 Respiratory Rate 18 10/01/23 00:28 Respiratory Effort Normal 10/01/23 00:31 Blood Pressure 141/88 H 10/01/23 00:28 Blood Pressure Position Sitting 10/01/23 00:28 Pulse Oximetry 95 10/01/23 00:28 Oxygen Delivery Method Room Air 10/01/23 00:28 Oxygen Flow Rate 0 10/01/23 00:28 Medical Decision Making Patient presenting to ED with chest pain that began after vomiting. Did have initially after first episode of vomiting but much worse after second episode. Hurts to take a deep breath but does not feel short of breath. Denies any neck or back pain. Complains of some upper abdominal pain but has a benign abdomen. Thinks second episode of vomiting was a little reddish-brown in nature. No gross blood. No blood in his diarrhea. Likely musculoskeletal chest wall pain. Symptoms not really consistent with ACS, PE, dissection. Should consider possible Mara-Roach tear or esophageal perforation. IV established and laboratory studies obtained. Fluids and medications ordered. CT scan of the chest abdomen pelvis ordered. 02:45 - Patient is doing better after fluids, IV acetaminophen and ondansetron. Laboratory studies are unremarkable. No worrisome abnormalities. CT scan preliminary read per radiology with no pneumomediastinum, evidence of some esophageal inflammation distally, liquid stool throughout the colon consistent with diarrheal illness. Has some trace left pleural effusion and mild splenomegaly. Will plan discharge home with ondansetron provided to use as needed. Rest, bland diet, acetaminophen or ibuprofen for his chest pain which is likely musculoskeletal in nature. Follow-up with primary care in the next few days if not improving. Return precautions provided. Medical Records Medical records reviewed: Yes I reviewed the patient's medical records. Medical records narrative: Neuro and Oncology notes Lab Data Lab results reviewed: Yes I reviewed the patient's lab results. Lab results narrative: see [facility] ECG Data Attestation: I personally reviewed and interpreted this ECG (s) as follows: Prior ECG tracings: available for review Interpretation: see EKG/[facility] All Active Problems (Updated 10/01/23 @ 02:48 by Cecilio Pleitez MD) Chest pain (Acute) Nausea, vomiting and diarrhea (Acute) Concussion (Acute) Chronic nasal congestion (Acute) Deviated nasal septum (Acute) Hypercapnia (Acute) Abnormal brain MRI (Acute) Non-restorative sleep (Acute) Amnesia (Acute) Medical History Migraine headache with aura Surgical History S/P skin cancer resection foot History of hernia repair Family History Mother No problems noted. Father No problems noted. Sister No problems noted. Sister No problems noted. Sister No problems noted. Brother No problems noted. 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
--- NOTE | 2023-10-01 00:45 | DI.CT_ITS ---
Exam(s) CT CHEST/ABD/PEL W EXAM: CT CHEST/ABD/PEL W CLINICAL HISTORY: vomiting; upper abd pain; CP after vomiting. TECHNIQUE: Imaging Protocol: Axial computed tomography images with coronal and sagittal reformatted images were created and reviewed CONTRAST MATERIAL: Intravenous: Omnipaque 350 Contrast volume:100 ml Oral: None COMPARISON: No exams were available for comparison FINDINGS: CHEST: LUNGS: There is a partially calcified pleural base nodule in the right lower lobe posterior basal seg ment, this in addition to a few other tiny calcified granulomas.. There is also mild subpleural infi ltrate in the posterior basal segment of the left lower lobe. No significant pleural effusions. No findings in the trachea and mainstem bronchi. There is no bronchiectasis. MEDIASTINUM: Few small calcified lymph nodes are noted in the right hilum, commensurate with what is seen in the ipsilateral lung. There also a few similar calcified lymph nodes in the subcarinal regio n. also calcified lymph node in the anterior mediastinal fat, left of center adjacent to the proximal left common carotid artery. Partially visualized thyroid appears unremarkable. Esophagus is not dilated. There is some circumferential thickening of the lower esophagus. No evide nce of pneumomediastinum, given the history. CARDIAC: Heart size is normal. There is no pericardial effusion.Caliber of the thoracic aorta is wit hin normal limits. OSSEOUS: No significant osseous lesions.No fractures.. ABDOMEN: There is no ascites. LIVER: There are no focal hepatic lesions nor dilatation of intrahepatic ducts. GALLBLADDER/BILIARY: No obvious gallbladder pathology. CBD is not dilated. PANCREAS: No evidence of pancreatic mass nor dilatation of the pancreatic duct. SPLEEN: Mild splenomegaly. Spleen measures 14.2 cm craniocaudal. There are no splenic lesions. Spl enic and portal veins are patent. ADRENALS: There are no significant adrenal masses. KIDNEYS: No calculi nor hydronephrosis. No solid renal masses. No cysts evident. ABDOMINAL AORTA: Abdominal aorta is not enlarged. LYMPH NODES: There is no retroperitoneal nor paraaortic adenopathy. ABDOMINAL WALL: No evidence of significant anterior abdominal wall nor inguinal hernia. GI: Numerous small bowel loops exhibit fluid content and upper normal diameters. Also some fluid in the colon. No evidence of bowel obstruction nor free air nor abscess. PELVIS: LYMPH NODES: There is no intrapelvic nor inguinal adenopathy. GI: No evidence of appendicitis.No evidence of sigmoid diverticulitis. URINARY BLADDER: No calculi nor masses evident REPRODUCTIVE: Prostate size normal. Seminal vesicles unremarkable. OSSEOUS: No significant osseous lesions. No fractures. Sacroiliac joints unremarkable. Small benign bone island is noted in the upper right femoral head. IMPRESSION: 1. There is circumferential thickening of the distal esophageal wall suspicious for esophagitis. Yanick ropriate follow-up recommended. 2. Mild subpleural infiltrate in the posterior basal segment left lower lobe. Partially calcified pl eural based nodular density right lower lobe posterior basal segment as well as multiple tiny calcifi ed granulomas in the right lung and calcified lymph nodes in the right hilum and subcarinal region. 3. Mild splenomegaly. Spleen measures 14.2 cm craniocaudal. 4. Fluid in upper limits normal small bowel. No evidence of bowel obstruction. RADIATION DOSE DELIVERED: Total DLP DATA REPOSITORY: All CT scans at this facility are submitted to the National Radiology Data Registry (NRDR) Dose Index Registry (DIR) with the [employer] (ACR). RADIATION OPTIMIZATION: All CT scans at this facility use at least one of these dose optimization te chniques: automated exposure control; mA and/or kV adjustment per patient size (includes targeted exa ms where dose is matched to clinical indication); or iterative reconstruction.
[2023-10-01 00:59] LABS: Abs Immature Grans 0.04 10^3/uL (0.0-0.06); Absolute Basophil Count 0.03 10^3/uL (0.0-0.2); Absolute Eosinophil Count 0.21 10^3/uL (0.0-0.7); Absolute Lymphocyte Count 1.16 10^3/uL (1.2-3.4); Absolute Monocyte Count 0.62 10^3/uL (0.1-0.8); Absolute Neutrophil Count 8.38 10^3/uL (1.2-6.7); Basophils % 0.3 %; HCT 51.6 % (40.0-50.0); HGB 17.5 g/dL (13.5-17.5); Immature Grans % 0.4 %; Lymphocytes % 11.1 %; MCH 28.8 pg (27.0-33.0); MCHC 33.9 % (32.0-36.0); MCV 85 fL (80-95); MPV 9.6 fL (8.0-11.0); Monocytes % 5.9 %; Neutrophils % 80.3 %; Platelet Count 289 10^3/uL (130-400); RBC 6.07 10^6/uL (4.36-5.78); RDW 12.1 % (11.8-14.1); RDW-SD 37.2 fL; WBC 10.44 10^3/uL (4.4-10.8)
[2023-10-01] MEDS: Lactated Ringers 1,000 ML 1000 ML IV (01:05)
[2023-10-01] MEDS: ACETAMINOPHEN 1,000 MG/100 ML BTL 400 MG IVPB (01:07)
[2023-10-01] MEDS: Ondansetron 4 MG/2 ML VIAL IVP (01:07)
[2023-10-01 01:15] LABS: Lipase 26 U/L (16-77)
[2023-10-01 01:36] LABS: ALT 32 U/L (16-63); AST 26 U/L (15-37); Albumin 4.7 g/dL (3.4-5.0); Alkaline Phosphatase 49 U/L (46-116); Anion Gap 9.6 mmol/L (3-11); BUN 16 mg/dL (7-18); CO2 26.4 mmol/L (21.0-32.0); CREATININE 1.2 mg/dL (0.70-1.30); Calcium 9.3 mg/dL (8.5-10.1); Chloride 103 mmol/L (98-107); Estimated GFR 83.95 (mL/min/1.73m2); Glucose 135 mg/dL (74-106); Magnesium 1.9 mg/dL (1.8-2.4); Potassium 4.2 mmol/L (3.5-5.1); Sodium 139 mmol/L (136-145); Total Protein 8.7 g/dL (6.4-8.2); Troponin I < 50 ng/L (< or =60)
[2023-10-01] MEDS: Normal Saline - Diluent 50 ML VIAL IJ (01:52)
[2023-10-01] MEDS: Omnipaque 350 MG/ML 100 ML BTL IJ (01:53)
--- NOTE | 2023-10-01 02:35 | DI.VRAD_ITS ---
PROCEDURE INFORMATION: Exam: CT Chest With Contrast; Diagnostic Exam date and time: 10/01/2023 1:57 AM Age: 27 years old Clinical indication: Other: Vomiting; Upper abd pain; Cp after vomiting TECHNIQUE: Imaging protocol: Diagnostic computed tomography of the chest with contrast. 3D rendering (Not supervised by radiologist): MIP and/or 3D reconstructed images were created by the technologist. Contrast material: OMNI 350; Contrast volume: 100 ml; Contrast route: INTRAVENOUS (IV); COMPARISON: CT CHEST PE CTA 08/11/2022 4:37 PM FINDINGS: Thyroid: Thyroid gland partially excluded from view but grossly unremarkable through its visualized portion. Lungs: Calcified right lower lobe pulmonary granuloma. Mild dependent atelectasis. No pulmonary consolidation or evidence of aspiration. Pleural spaces: Small left pleural effusion. No right-sided pleural effusion. No pneumothorax. Heart: Normal-sized heart. Esophagus: Circumferential distal esophageal wall thickening. No mediastinal fluid, fluid collection, or pneumomediastinum. Lymph nodes: Calcified mediastinal and right hilar lymph nodes in keeping with a prior granulomatous infection. Vasculature: No thoracic aortic aneurysm or dissection. Exam not tailored to evaluate the pulmonary arterial vasculature. Within the limits of the exam, no large central pulmonary embolism demonstrated in the pulmonary trunk or main pulmonary arteries. Bones/joints: No acute fracture seen among the bones of the chest. Soft tissues: No gross soft tissue mass or fluid collection seen in the chest wall. IMPRESSION: 1. Circumferential distal esophageal wall thickening suspicious for esophagitis, possibly caused by reflux or vomiting. Clinical correlation recommended. 2. Small left pleural effusion. PROCEDURE INFORMATION: Exam: CT Abdomen And Pelvis With Contrast Exam date and time: 10/01/2023 1:57 AM Age: 27 years old Clinical indication: Other: Vomiting; Upper abd pain; Cp after vomiting TECHNIQUE: Imaging protocol: Computed tomography of the abdomen and pelvis with contrast. 3D rendering (Not supervised by radiologist): MIP and/or 3D reconstructed images were created by the technologist. Contrast material: OMNI 350; Contrast volume: 100 ml; Contrast route: INTRAVENOUS (IV); COMPARISON: US ABDOMEN 08/11/2022 12:51 PM FINDINGS: Liver: Normal appearing liver. Gallbladder and biliary ducts: Gallbladder partially collapsed. No calcified gallstones seen. No biliary dilatation. Pancreas: Normal appearing pancreas. Spleen: Splenomegaly, 14 cm craniocaudal dimension. Adrenal glands: Normal appearing adrenal glands. Kidneys and ureters: Normal appearing kidneys. No hydronephrosis. No obstructing ureteral stones. Stomach and bowel: No oral contrast. Stomach partially decompressed. No small bowel dilatation to suggest obstruction. Colon completely evacuated of formed fecal material. Fluid throughout the proximal colon suspicious for diarrhea or impending diarrhea. No evidence of diverticulitis or colitis. Appendix: Normal appendix. Intraperitoneal space: No gross ascites or free air. Vasculature: Normal caliber abdominal aorta. Lymph nodes: No pathologically enlarged mesenteric, retroperitoneal, or pelvic sidewall lymph nodes. Urinary bladder: Normal appearing urinary bladder. Reproductive: Normal-appearing prostate gland and seminal vesicles. Bones/joints: No acute fracture seen among the bones of the abdomen or pelvis. Soft tissues: Small fat containing ventral hernia at the umbilicus. Prior right inguinal herniorrhaphy. IMPRESSION: 1. Colon completely evacuated of formed fecal material. Fluid throughout the proximal colon suggesting probable diarrhea or impending diarrhea. 2. Otherwise, no acute bowel pathology demonstrated. 3. Splenomegaly, 14 cm. Dictated and Authenticated by: Asher Fuentes MD. Ordering:ELENI Hernandes MD
[2023-10-01] MEDS: Ondansetron O.D.T. 4 MG TABEF, 3 TABS/BTL PO (03:03)
== END 2023-10-01 03:02 | disposition home or self-care (01) ==
PROVIDERS: Emergency Provider Emergency Medicine; PCP Nurse Practitioner Family
DX: R11.2 Nausea with vomiting, unspecified (principal); R19.7 Diarrhea, unspecified; R07.9 Chest pain, unspecified
CPT/HCPCS: 74177; 80053; 83690; 93005; 96361; 96365; 96375; 99285; 71260; 83735; 84484; 85025; 93010; 99284; J0131; J2405; J3490

== ENCOUNTER 2023-12-21 02:43 | Emergency (ER) | payer MEDICAID, SELFPAY ==
[2023-12-21 02:45] VITALS: BP 169/105; PULSE 71; RESP 18; TEMP 36.6; O2SAT 98
[2023-12-21 03:05] LABS: Bilirubin Negative (Negative); Blood Negative (Negative); Clarity Clear (Clear); Glucose Negative (Negative); Ketones Negative (Negative); Leukocyte Esterase Negative (Negative); Nitrite Negative (Negative); Urobilinogen 0.2 mg/dL (Up to 0.2)
[2023-12-21 03:29] LABS: Abs Immature Grans 0.02 10^3/uL (0.0-0.06); Absolute Basophil Count 0.06 10^3/uL (0.0-0.2); Absolute Lymphocyte Count 3.37 10^3/uL (1.2-3.4); Absolute Monocyte Count 0.77 10^3/uL (0.1-0.8); Absolute Neutrophil Count 2.77 10^3/uL (1.2-6.7); Basophils % 0.8 %; Eosinophils % 7.9 %; HCT 47.7 % (40.0-50.0); HGB 16.1 g/dL (13.5-17.5); Immature Grans % 0.3 %; Lymphocytes % 44.4 %; MCH 28.7 pg (27.0-33.0); MCHC 33.8 % (32.0-36.0); MCV 85 fL (80-95); MPV 9.8 fL (8.0-11.0); Monocytes % 10.1 %; Neutrophils % 36.5 %; Platelet Count 287 10^3/uL (130-400); RBC 5.61 10^6/uL (4.36-5.78); WBC 7.59 10^3/uL (4.4-10.8)
--- NOTE | 2023-12-21 03:30 | DI.CT_ITS ---
Exam(s) CT ABDOMEN PELVIS W EXAM: CT ABDOMEN PELVIS W CLINICAL HISTORY: RLQ abd pain. TECHNIQUE: Imaging Protocol: Axial computed tomography images with coronal and sagittal reformatted images were created and reviewed CONTRAST MATERIAL: Intravenous: Omnipaque-350 100cc Oral: None COMPARISON: CT CT CHEST/ABD/PEL W from 10/01/2023 FINDINGS: VISUALIZED LUNG BASES: Mild benign-appearing increased subpleural markings both lung bases. No pleur al effusions.. ABDOMEN: There is no ascites. LIVER: There are no focal hepatic lesions evident. No dilated intrahepatic ducts. GALLBLADDER/BILIARY: No obvious gallbladder pathology. CBD is not dilated. PANCREAS: No evidence of pancreatic mass nor dilatation of the pancreatic duct. SPLEEN: Mild splenomegaly. Cephalocaudal measurement of the spleen is 13.7 cm. There are no focal l esions in the spleen. Small calcified granulomas are noted in the spleen but no significant lesions. Splenic vein diameter is slightly prominent but not thrombosed. Portal vein confluence, SMV, and m ain portal vein are patent. ADRENALS: There are no significant adrenal masses. KIDNEYS:No cysts evident. No solid renal masses. No calculi nor hydronephrosis.. Urinary bladder w all is diffusely thickened. ABDOMINAL AORTA: Abdominal aorta is not enlarged. LYMPH NODES:There is no retroperitoneal nor paraaortic adenopathy. ABDOMINAL WALL: There is evidence of prior right inguinal hernia repair. No hernia evident at this t marianne. GI: There is no evidence of bowel obstruction, free air, nor abscess. PELVIS: GI: There is a tiny appendicular lith within the lumen of the retrocecal appendix. The appendix and not thickened. There is, however, mild inflammatory streaking adjacent to the lateral aspect the cec um.No evidence of sigmoid diverticulitis. LYMPH NODES: There is no intrapelvic nor inguinal adenopathy. REPRODUCTIVE: Prostate not enlarged. Seminal vesicles unremarkable. URINARY BLADDER: There is uniform thickening of the urinary bladder wall probably related to cystitis versus under distension. OSSEOUS: No fractures and no significant osseous lesions. IMPRESSION: 1. There is very subtle streaking adjacent to the lateral aspect of the cecum. The appendix is retro cecal and although contains a small appendicolith, the appendix does not appear thickened. Streaking does not appear to be adjacent to the terminal ileum. Cannot exclude subtle diverticulitis at this level or other inflammatory process in the cecum. 2. Urinary bladder wall is uniformly thickened. Possibly related to under distension but cannot excl ude cystitis. This finding was not evident on CT scan of 10/01/2023 First read by [facility]. Final report with above findings called by myself to ER provider 12/21/2023 at 9:28 a.m. RADIATION DOSE DELIVERED: 512.52mGy.cm Total DLP DATA REPOSITORY: All CT scans at this facility are submitted to the National Radiology Data Registry (NRDR) Dose Index Registry (DIR) with the [employer] (ACR). RADIATION OPTIMIZATION: All CT scans at this facility use at least one of these dose optimization te chniques: automated exposure control; mA and/or kV adjustment per patient size (includes targeted exa ms where dose is matched to clinical indication); or iterative reconstruction.
--- NOTE | 2023-12-21 03:40 | W.ED.GENAD ---
Discharge Plan Disposition Patient Disposition: Home Condition: Good Discharge Details Clinical Impression: Abdominal pain Primary Care Provider: Evie Finch ED Provider: Angelica Lamar Home Meds and New Rx's Prescriptions: Continued magnesium oxide 400 mg (241.3 mg magnesium) tablet 400 mg PO DAILY Discontinued Ondansetron Odt, 3 Tabs/Btl [Zofran Odt, 3 Tabs/Btl] 4 mg PO Q8H PRN (Reason: Nausea And Vomiting) Qty: 3 0RF Discharge Instructions Instructions: Abdominal Pain, Adult ED Additional Instructions: Tylenol and ibuprofen over the counter for pain; follow the directions on the bottle. Call your PCP today to schedule an appointment for within 48 hours to followup on your visit here. Return to the emergency department for new or worsening symptoms including vomiting, new/different/worse abdominal pain, or if you have any other concerns. Referrals: Evie Finch SHIRT TURNER [Primary Care Provider] - [facility] General Mode of arrival: ambulatory. Date/Time Provider Initiated Documentation: 12/21/23 02:45. Limitations to Documentation: no limitations. Information obtained by: patient. HPI Narrative: 28yo M presenting with RLQ abdominal pain for over 24 hours. Pain is sharp, constant, and worse with movement. No nausea, vomiting, diarrhea, or constipation. No dysuria, hematuria, testicular pain, unusual penile discharge, or flank pain. No fevers. Otherwise in his usual state of health. Related Data Home Medications ?Medication ?Instructions ?Recorded ?Confirmed magnesium oxide 400 mg (241.3 mg 400 mg PO DAILY 03/29/21 12/21/23 magnesium) tablet Allergies Allergy/AdvReac Type Severity Reaction Status Date / Time banana Allergy throat Verified 12/21/23 02:49 swelling honey Allergy Anaphylaxis Verified 12/21/23 02:49 kiwi Allergy throat Verified 12/21/23 02:49 swelling melon Allergy throat Verified 12/21/23 02:49 swelling pineapple Allergy throat Verified 12/21/23 02:49 swelling strawberry Allergy throat Verified 12/21/23 02:49 swelling General Stated Complaint: Abd Prob WALT: 3 Review of Systems Narrative: see HPI Exam Narrative Exam Narrative: General: Alert, well appearing, well nourished, in no acute distress. Head: Normocephalic, atraumatic Neck: Trachea midline, ?Neck supple. ENT: ?MMM.? No oropharygeal lesions or exudate. Cardiac: ?RRR, no murmurs appreciated Resp: No respiratory distress. CTAB. Abd: ?Soft, non-distended, RLQ TTP with no rebound or guarding. : ?No suprapubic tenderness. No CVA tenderness. Pt declined testicular exam. Extremities: ?No deformities.? No peripheral edema. Neurologic: GCS 15. ? Moves all extremities freely against gravity Course Vital Signs Vital signs: Vital Signs Temperature 36.6 C 12/21/23 02:45 Pulse 71 12/21/23 02:45 Respiratory Rate 18 12/21/23 02:45 Blood Pressure 169/105 H 12/21/23 02:45 Pulse Oximetry 98 12/21/23 02:45 Temperature 36.6 C 12/21/23 02:45 Temperature Source Skin 12/21/23 02:45 Pulse 71 12/21/23 02:45 Respiratory Rate 18 12/21/23 02:45 Respiratory Effort Normal 12/21/23 02:48 Blood Pressure 169/105 H 12/21/23 02:45 Blood Pressure Position Sitting 12/21/23 02:45 Pulse Oximetry 98 12/21/23 02:45 Oxygen Delivery Method Room Air 12/21/23 02:45 Oxygen Flow Rate 0 12/21/23 02:45 Lab/Test Results Lab/Test Results: Laboratory Tests Range/Units 12/21/23 12/21/23 02:54 03:00 WBC (4.4-10.8) 10^3/uL 7.59 RBC (4.36-5.78) 10^6/uL 5.61 Hgb (13.5-17.5) g/dL 16.1 Hct (40.0-50.0) % 47.7 MCV (80-95) fL 85 MCH (27.0-33.0) pg 28.7 MCHC (32.0-36.0) % 33.8 RDW (11.8-14.1) % 12.0 Plt Count (130-400) 10^3/uL 287 MPV (8.0-11.0) fL 9.8 Immature Gran % % 0.3 Neutrophils % % 36.5 Lymphocytes % % 44.4 Monocytes % % 10.1 Eosinophils % % 7.9 Basophils % % 0.8 Nucleated RBC % (0.0-0.3) % 0.0 Absolute Neutrophils (1.2-6.7) 10^3/uL 2.77 Absolute Lymphocytes (1.2-3.4) 10^3/uL 3.37 Absolute Monocytes (0.1-0.8) 10^3/uL 0.77 Absolute Eosinophils (0.0-0.7) 10^3/uL 0.60 Absolute Basophils (0.0-0.2) 10^3/uL 0.06 Urine Color (Yellow) Yellow Urine Clarity (Clear) Clear Urine pH (5-8) 6.0 Ur Specific Bozman (1.005-1.025) 1.010 Urine Protein (Neg-Trace) mg/dL Negative Urine Ketones (Negative) mg/dL Negative Urine Blood (Negative) Negative Urine Nitrite (Negative) Negative Urine Bilirubin (Negative) Negative Urine Urobilinogen (Up to 0.2) mg/dL 0.2 Ur Leukocyte Esterase (Negative) Negative Urine Glucose (Negative) mg/dL Negative Medical Decision Making 28yo M presenting with RLQ abdominal pain for over 24 hours. Vital signs reassuring on arrival. RLQ tenderness on exam with no rebound or guarding. No dysuria, hematuria, or flank pain to suggest UTI, pyelonephritis, or kidney stone. No testicular or groin pain to suggest testicular torsion, epidimyitis, orchitis. Has not hat any pain medication; will treat initially wtih tylenol. Labs reviewed as below, CBC reassuring with no leukocytosis or anemia, CMP with no actionable abnormalities, UA not infected. CT abd pelvis independently reviewed; no obstruction or free fluid, radiology read below concerning for cystitis however UA not infected, would not treat. On reassessment pt reports pain mildly improved. Abdomen remains reassuring with no peritoneal signs. Discharged home to followup with PCP. Discharge instructions and return precautions were reviewed with patient who verbalized understanding. All questions were answered and he is in full agreement with the plan. Imaging Data Radiologic Study: Imaging: CT Scan Radiologist's impression: IMPRESSION: 1. Bladder wall thickening, likely cystitis. Cannot exclude muscular hypertrophy, neoplasm. Followup as clinically warranted. 2. Additional findings as above. Lab Data Lab results reviewed: Yes I reviewed the patient's lab results. Labs: Laboratory Tests Range/Units 12/21/23 12/21/23 02:54 03:00 WBC (4.4-10.8) 10^3/uL 7.59 RBC (4.36-5.78) 10^6/uL 5.61 Hgb (13.5-17.5) g/dL 16.1 Hct (40.0-50.0) % 47.7 MCV (80-95) fL 85 MCH (27.0-33.0) pg 28.7 MCHC (32.0-36.0) % 33.8 RDW (11.8-14.1) % 12.0 Plt Count (130-400) 10^3/uL 287 MPV (8.0-11.0) fL 9.8 Immature Gran % % 0.3 Neutrophils % % 36.5 Lymphocytes % % 44.4 Monocytes % % 10.1 Eosinophils % % 7.9 Basophils % % 0.8 Nucleated RBC % (0.0-0.3) % 0.0 Absolute Neutrophils (1.2-6.7) 10^3/uL 2.77 Absolute Lymphocytes (1.2-3.4) 10^3/uL 3.37 Absolute Monocytes (0.1-0.8) 10^3/uL 0.77 Absolute Eosinophils (0.0-0.7) 10^3/uL 0.60 Absolute Basophils (0.0-0.2) 10^3/uL 0.06 Sodium (136-145) mmol/L 142 Potassium (3.5-5.1) mmol/L 4.1 Chloride (98-107) mmol/L 104 Carbon Dioxide (21.0-32.0) mmol/L 29.7 Anion Gap (3-11) mmol/L 8.3 BUN (7-18) mg/dL 9 Creatinine (0.70-1.30) mg/dL 0.9 Est GFR (CKD-EPI 2020) (mL/min/1.73m2) 117.83 Glucose (74-106) mg/dL 85 Calcium (8.5-10.1) mg/dL 9.4 Total Bilirubin (0.2-1.0) mg/dL 0.40 AST (15-37) U/L 32 ALT (16-63) U/L 41 Alkaline Phosphatase (46-116) U/L 46 Total Protein (6.4-8.2) g/dL 8.1 Albumin (3.4-5.0) g/dL 4.1 Urine Color (Yellow) Yellow Urine Clarity (Clear) Clear Urine pH (5-8) 6.0 Ur Specific Bozman (1.005-1.025) 1.010 Urine Protein (Neg-Trace) mg/dL Negative Urine Ketones (Negative) mg/dL Negative Urine Blood (Negative) Negative Urine Nitrite (Negative) Negative Urine Bilirubin (Negative) Negative Urine Urobilinogen (Up to 0.2) mg/dL 0.2 Ur Leukocyte Esterase (Negative) Negative Urine Glucose (Negative) mg/dL Negative Quality:SDOH Health Related Social Needs: No Data to Display PFSH All Active Problems (Updated 12/21/23 @ 05:46 by Angelica Lamar MD) Abdominal pain (Acute) Concussion (Acute) Chronic nasal congestion (Acute) Deviated nasal septum (Acute) Hypercapnia (Acute) Abnormal brain MRI (Acute) Non-restorative sleep (Acute) Amnesia (Acute) Medical History Migraine headache with aura Surgical History S/P skin cancer resection foot History of hernia repair Family History Mother No problems noted. Father No problems noted. Sister No problems noted. Sister No problems noted. Sister No problems noted. Brother No problems noted. 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
[2023-12-21 03:44] LABS: ALT 41 U/L (16-63); AST 32 U/L (15-37); Albumin 4.1 g/dL (3.4-5.0); Alkaline Phosphatase 46 U/L (46-116); Anion Gap 8.3 mmol/L (3-11); BUN 9 mg/dL (7-18); CO2 29.7 mmol/L (21.0-32.0); CREATININE 0.9 mg/dL (0.70-1.30); Calcium 9.4 mg/dL (8.5-10.1); Chloride 104 mmol/L (98-107); Estimated GFR 117.83 (mL/min/1.73m2); Glucose 85 mg/dL (74-106); Potassium 4.1 mmol/L (3.5-5.1); Sodium 142 mmol/L (136-145); Total Protein 8.1 g/dL (6.4-8.2)
[2023-12-21] MEDS: Acetaminophen 500 MG TAB 1000 MG PO (03:49)
[2023-12-21] MEDS: Normal Saline - Diluent 50 ML VIAL IJ (04:05)
[2023-12-21] MEDS: Omnipaque 350 MG/ML 100 ML BTL IJ (04:06)
--- NOTE | 2023-12-21 04:50 | DI.VRAD_ITS ---
PROCEDURE INFORMATION: Exam: CT Abdomen And Pelvis With Contrast Exam date and time: 12/21/2023 3:51 AM Age: 28 years old Clinical indication: Abdominal pain and other: Rlq abd pain TECHNIQUE: Imaging protocol: Computed tomography of the abdomen and pelvis with contrast. Contrast material: OMNI 350; Contrast volume: 85 ml; Contrast route: INTRAVENOUS (IV); COMPARISON: CT CHEST/ABD/PEL W 10/01/2023 1:57 AM FINDINGS: Lungs: Atelectasis/scarring at the right lung base. Liver: No focal hepatic lesion identified. Gallbladder and biliary ducts: No radiodense gallbladder calculi seen. Pancreas: No CT evidence for acute pancreatitis. Spleen: Mild splenomegaly. Splenic granulomas. Adrenal glands: No mass. Kidneys and ureters: No hydronephrosis or evidence for pyelonephritis. Stomach and bowel: No intestinal obstruction is evident. Retained fecal material is present in the colon. Appendix: No evidence of appendicitis. Intraperitoneal space: No free air. Vasculature: No abdominal aortic aneurysm. Lymph nodes: Nonspecific mesenteric lymph nodes. Urinary bladder: Bladder wall thickening. Reproductive: No acute findings. Bones/joints: No pertinent acute abnormality seen. Soft tissues: Tiny fat containing umbilical hernia. IMPRESSION: 1. Bladder wall thickening, likely cystitis. Cannot exclude muscular hypertrophy, neoplasm. Follow-up as clinically warranted. 2. Additional findings as above. Dictated and Authenticated by: Zainab Shepard MD. Ordering:VERÓNICA Dominguez MD
[2023-12-21 06:12] VITALS: BP 156/99; PULSE 65; O2SAT 98
== END 2023-12-21 06:11 | disposition home or self-care (01) ==
PROVIDERS: Emergency Provider Student in an Organized Health Care Education/Training Program; PCP Nurse Practitioner Family
DX: R10.31 Right lower quadrant pain (principal)
CPT/HCPCS: 36415; 80053; 99285; 74177; 81003; 85025; 99284; J3490

== ENCOUNTER 2023-12-21 14:31 | Emergency (ER) | payer MEDICAID, SELFPAY ==
[2023-12-21 14:32] VITALS: BP 138/90; PULSE 86; RESP 10; TEMP 36.9; O2SAT 95
[2023-12-21 14:49] LABS: Bilirubin Negative (Negative); Blood Negative (Negative); Clarity Clear (Clear); Glucose Negative (Negative); Ketones Negative (Negative); Leukocyte Esterase Negative (Negative); Nitrite Negative (Negative); Urobilinogen 0.2 mg/dL (Up to 0.2); pH 6.5 (5-8)
[2023-12-21 14:50] VITALS: BP 138/90; PULSE 86; RESP 12; TEMP 36.9; O2SAT 95
--- NOTE | 2023-12-21 15:00 | ED.GENADUL_ITS ---
Discharge Plan Discharge Details Chief Complaint: Abd Prob Primary Care Provider: Evie Finch ED Provider: Jojo Sanchez Home Meds and New Rx's Prescriptions: No Action magnesium oxide 400 mg (241.3 mg magnesium) tablet 400 mg PO DAILY HPI General Date/Time Provider Initiated Documentation: 12/21/23 14:35 . HPI Narrative: Nikos is a 28-year-old male who presents to the emergency department today for reevaluation of right lower quadrant pain described as like constipation. Dr. Padron radiologist over read his CT from last night, found streaking around the cecum that was not noted, concern for inflammatory process. I called patient back and he returned to the ED for reevaluation as advised. He reports that he has continued to have the aching, dull right lower quadrant pain since Sunday (two days ago). Reports he did develop chills this morning. Denies recorded fever, dizziness, chest pain, shortness of breath, sore throat, cough, nausea/vomiting, change in bowel or bladder function, change in testicles. He does have a history of inguinal hernia repair with mesh, not sure what side this was on. Physical exam remarkable for right lower quadrant tenderness with palpation. No rebound or guarding. Abdomen is soft, nondistended, normoactive bowel sounds. DDx includes but is not limited to: Early appendicitis, colitis/diverticulitis, other inflammatory process, UTI I independently interpreted the following tests: CBC, CMP, and UA all reassuring. Awaiting CT abdomen/pelvis. Handoff report given to Cheyanne Thomas NP, evening FRANCIE. Related Data Home Medications ?Medication ?Instructions ?Recorded ?Confirmed magnesium oxide 400 mg (241.3 mg 400 mg PO DAILY 03/29/21 12/21/23 magnesium) tablet Allergies Allergy/AdvReac Type Severity Reaction Status Date / Time banana Allergy throat Verified 12/21/23 14:35 swelling honey Allergy Anaphylaxis Verified 12/21/23 14:35 kiwi Allergy throat Verified 12/21/23 14:35 swelling melon Allergy throat Verified 12/21/23 14:35 swelling pineapple Allergy throat Verified 12/21/23 14:35 swelling strawberry Allergy throat Verified 12/21/23 14:35 swelling General Stated Complaint: Abd Prob WALT: 3 Review of Systems Narrative: see HPI Exam Const General: cooperative, healthy appearing, comfortable, no acute distress, well developed and well groomed Nutritional Appearance: average body habitus Orientation: alert and oriented x3 Resp Effort & Inspection: normal respiratory effort and able to speak in complete sentences Auscultation: clear to auscultation bilaterally Cardio Rate: regular rate Rhythm: regular rhythm GI Inspection: normal to inspection and non-distended Palpation: soft, not firm, no guarding and tender in the RLQ Auscultation: normal bowel sounds Course Vital Signs Vital signs: Vital Signs Temperature 36.9 C 12/21/23 14:32 Pulse 86 12/21/23 14:32 Respiratory Rate 10 L 12/21/23 14:32 Blood Pressure 138/90 12/21/23 14:32 Pulse Oximetry 95 12/21/23 14:32 Temperature 36.9 C 12/21/23 14:50 Temperature Source Skin 12/21/23 14:50 Pulse 86 12/21/23 14:50 Respiratory Rate 12 12/21/23 14:50 Respiratory Effort Normal, Non-Labored 12/21/23 14:55 Blood Pressure 138/90 12/21/23 14:50 Blood Pressure Position Sitting 12/21/23 14:50 Pulse Oximetry 95 12/21/23 14:50 Oxygen Delivery Method Room Air 12/21/23 14:50 Oxygen Flow Rate 0 12/21/23 14:50 Pain Level 3 12/21/23 14:50 Lab/Test Results Lab/Test Results: Laboratory Tests Range/Units 12/21/23 14:38 Urine Color (Yellow) Yellow Urine Clarity (Clear) Clear Urine pH (5-8) 6.5 Ur Specific Johnston (1.005-1.025) 1.020 Urine Protein (Neg-Trace) mg/dL Negative Urine Ketones (Negative) mg/dL Negative Urine Blood (Negative) Negative Urine Nitrite (Negative) Negative Urine Bilirubin (Negative) Negative Urine Urobilinogen (Up to 0.2) mg/dL 0.2 Ur Leukocyte Esterase (Negative) Negative Urine Glucose (Negative) mg/dL Negative Medical Decision Making Quality:SDOH Health Related Social Needs: No Data to Display PFSH All Active Problems (Updated 12/21/23 @ 05:46 by Angelica Lamar MD) Abdominal pain (Acute) Concussion (Acute) Chronic nasal congestion (Acute) Deviated nasal septum (Acute) Hypercapnia (Acute) Abnormal brain MRI (Acute) Non-restorative sleep (Acute) Amnesia (Acute) Medical History Migraine headache with aura Surgical History S/P skin cancer resection foot History of hernia repair Family History Mother No problems noted. Father No problems noted. Sister No problems noted. Sister No problems noted. Sister No problems noted. Brother No problems noted. 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
[2023-12-21 15:21] LABS: Abs Immature Grans 0.01 10^3/uL (0.0-0.06); Absolute Basophil Count 0.06 10^3/uL (0.0-0.2); Absolute Lymphocyte Count 2.24 10^3/uL (1.2-3.4); Absolute Neutrophil Count 3.44 10^3/uL (1.2-6.7); Basophils % 0.9 %; Eosinophils % 5.9 %; HCT 49.6 % (40.0-50.0); HGB 16.8 g/dL (13.5-17.5); Immature Grans % 0.1 %; Lymphocytes % 33.2 %; MCH 28.5 pg (27.0-33.0); MCHC 33.9 % (32.0-36.0); MCV 84 fL (80-95); MPV 9.3 fL (8.0-11.0); Monocytes % 8.9 %; Platelet Count 308 10^3/uL (130-400); RBC 5.89 10^6/uL (4.36-5.78); RDW-SD 36.4 fL; WBC 6.75 10^3/uL (4.4-10.8)
[2023-12-21 15:34] LABS: Anion Gap 5.4 mmol/L (3-11); BUN 8 mg/dL (7-18); CO2 31.6 mmol/L (21.0-32.0); CREATININE 0.9 mg/dL (0.70-1.30); Calcium 9.7 mg/dL (8.5-10.1); Chloride 106 mmol/L (98-107); Estimated GFR 117.83 (mL/min/1.73m2); Glucose 100 mg/dL (74-106); Potassium 3.9 mmol/L (3.5-5.1); Sodium 143 mmol/L (136-145)
--- NOTE | 2023-12-21 15:45 | DI.CT_ITS ---
Exam(s) CT ABDOMEN PELVIS W EXAM: CT ABDOMEN PELVIS W CLINICAL HISTORY: RLQ pain, concern for appy TECHNIQUE: Imaging Protocol: Axial computed tomography images with coronal and sagittal reformatted images were created and reviewed. CONTRAST MATERIAL: Intravenous: Omnipaque 350 Contrast volume:85 mL Oral: No COMPARISON: CT CT CHEST/ABD/PEL W from 10/01/[address] ABDOMEN PELVIS W from 12/21/2023 FINDINGS: ABDOMEN: Lung Bases: There is a small left pleural effusion. Liver: There is decreased attenuation of the liver suggesting fatty infiltration. No measurable mass . Portal, Superior Mesenteric, and Splenic Veins: Unremarkable. Gallbladder and Biliary Tract: No radiodense calculus or dilation. Pancreas: Normal density, no abnormal calcifications or inflammatory process. Spleen: Normal. Adrenals: No masses seen. Kidneys: Normal size, contour and axis. No radiodense stones or obstructive uropathy. No masses seen. Abdominal Aorta: Abdominal portion non-dilated. Bowel: No obstruction or bowel wall thickening. There is infiltration of the fat lateral to the ascen ding colon suspicious for epiploic appendagitis. (Series 10, images 90 04/26/2016). A normal caliber appendix is seen inferiorly at the inferior aspect of the cecum (series 10 images 129 through 137). Peritoneal Cavity: No ascites, collection or mesenteric inflammatory response. No free air. Lymph Nodes: Within normal limits. Bones: Within normal limits for the patient's age. Soft Tissues: There is a small fat containing paraumbilical hernia. PELVIS: Bladder: Symmetric distention, no gross wall thickening. Reproductive Organs: Unremarkable as visualized. Lymph Nodes: Within normal limits. Bones: Within normal limits for the patient's age. IMPRESSION: 1. Infiltration of the fat adjacent to the right colon is seen inferior to the liver. The findings a re most suspicious for epiploic appendagitis. 2. Normal appearance of the appendix. 3. No evidence of pneumoperitoneum or ascites. RADIATION DOSE DELIVERED: 603.33mGy.cm Total DLP DATA REPOSITORY: All CT scans at this facility are submitted to the National Radiology Data Registry (NRDR) Dose Index Registry (DIR) with the [employer] (ACR). RADIATION OPTIMIZATION: All CT scans at this facility use at least one of these dose optimization te chniques: automated exposure control; mA and/or kV adjustment per patient size (includes targeted exa ms where dose is matched to clinical indication); or iterative reconstruction.
[2023-12-21] MEDS: Normal Saline - Diluent 50 ML VIAL IJ (16:08)
[2023-12-21] MEDS: Omnipaque 350 MG/ML 100 ML BTL IJ (16:09)
[2023-12-21 16:43] VITALS: BP 137/91; PULSE 75; O2SAT 98
--- NOTE | 2023-12-21 17:04 | ED.PROG_ITS ---
Date of service: 12/21/23 Time of Service: 17:04 Medical Decision Making Care assumed from provider (Jojo LOPES) Please see their initial HPI, PE, and documentation. Discussed patient details and case and pending workup and disposition. Patient is hemodynamically stable, and alert and oriented. At the time of signout awaiting discharge and CT results. CT has resulted with findings for epiploic appendagitis and normal appearance of the appendix. Patient to be discharged home. This text was generated using Simpleviewation system, please disregard any oddities of phrase or misspellings. Medical Records Medical records reviewed: Yes I reviewed the patient's medical records. Lab Data Lab results reviewed: Yes I reviewed the patient's lab results. Quality:[facility] Health Related Social Needs: No Data to Display Sign Out Sign Out Data: Sign Out Comment: 28 year old male presented to ED for re-evaluation of RLQ x 3 days. Chills this AM. Bloodwork unchanged. Concern for early appendicitis- streaking noted adjacent to cecum. Awaiting CT read Last updated by Jojo Sanchez at 12/21/23 16:50 Discharge Plan Disposition Patient Disposition: Home Condition: Stable Discharge Details Clinical Impression: Epiploic appendagitis Primary Care Provider: Evie Finch ED Provider: Cheyanne Hope Home Meds and New Rx's Prescriptions: No Action magnesium oxide 400 mg (241.3 mg magnesium) tablet 400 mg PO DAILY Discharge Instructions Instructions: Abdominal pain Additional Instructions: The CT shows something epiploic appendagitis which is fatty infiltration next to the bowel. No evidence of appendicitis. The next 2 to 3 days stay away from anything fried fatty spicy or dairy. Follow up with primary care provider in 3-5 days. Return to ED sooner if any worsening or concerns. Please take Tylenol or Ibuprofen with food every 4-6 hours as needed for pain and swelling. Referrals: Evie Finch NP [Primary Care Provider] - 3 days Discharge Data Discharge Date/Time-TO BE ENTERED AT DEPARTURE: 12/21/23 17:19
== END 2023-12-21 17:19 | disposition home or self-care (01) ==
PROVIDERS: Nurse Practitioner Family; Emergency Provider Registered Nurse Emergency; PCP Nurse Practitioner Family
DX: K63.89 Other specified diseases of intestine; R11.0 Nausea
CPT/HCPCS: 00123; 36415; 80048; 99285; 74177; 81003; 85025; 99284; J3490